=== PATIENT | male | born 1960 | race Caucasian/White ===

== ENCOUNTER 2018-06-17 04:44 | Inpatient (IN) ==
--- NOTE | 2018-05-15 12:45 | Anesthesiology Consultation ---
Date of Service May 15, 2018 Assessment & Plan (1) Encounter for pre-operative examination: Chart Review Chart Review: Acceptable Risk for Surgery and Patient seen in Pre Admission Testing Teaching & Discussion Instructed NPO after midnight before surgery, except medications with 15 cc of water. Medication instructions provided according to the PAT guidelines. History Surgery Operation Date: 06/17/18 07:00 Proposed Procedures p Right Total Knee Arthroplasty - Dorian Edward MD Height/Weight Height: 5 ft 10 in Weight: 120.7 kg Allergies Allergy/AdvReac Type Severity Reaction Status Date / Time ciprofloxacin [From Cipro] Allergy Unknown "BLOWING Verified 05/06/18 09:49 OUT MY VEINS" Medications Home Medications Medication Instructions Recorded Confirmed Last Taken allopurinol 300 mg PO DAILY 05/06/18 05/06/18 Unknown diclofenac sodium 75 mg PO BID 05/06/18 05/06/18 Unknown docusate sodium 100 mg PO BID 05/06/18 05/06/18 Unknown ferrous sulfate 325 mg PO TID 05/06/18 05/06/18 Unknown ibuprofen 600 mg PO UD PRN 05/06/18 05/06/18 Unknown indomethacin 50 mg PO TID PRN 05/06/18 05/06/18 Unknown magnesium oxide 400 mg PO HS 05/06/18 05/06/18 Unknown meclizine 25 mg PO UD PRN 05/06/18 05/06/18 Unknown metformin 500 mg PO QDD 05/06/18 05/06/18 Unknown omeprazole 40 mg PO QAM 05/06/18 05/06/18 Unknown ranitidine HCl 150 mg PO BID 05/06/18 05/06/18 Unknown riboflavin (vitamin B2) 400 mg PO DAILY 05/06/18 05/06/18 Unknown simvastatin 20 mg PO PM 05/06/18 05/06/18 Unknown Past Medical History Medical History Acid reflux Arthritis Headache HEADACHES OVER LAST 2 MON/PCP & NEURO...TESTING ORDERED/NO FINDINGS AT PRESENT- -POSSIBLY LYME DZ, POSSIBLY HYPOGLYCEMIA? History of diverticulitis LAST FLARE UP APPROX 3 YRS AGO History of gout Obesity Pre-diabetes A1C 5.8% on 05/12/18 Past Family History Family History Brother Family history of lymphoma Brother Family history of prostate cancer Grandfather Family history of prostate cancer Mother Family history of breast cancer Past Surgical History Surgical History History of arthroscopy of right shoulder History of colonoscopy History of endoscopy Past Anesthesia History No Hx of Anesthesia Complications and No Family Hx of Anesthesia Complications History of PONV No Motion Sickness Screening History of Motion Sickness: No Social History Smoking Status: Never smoker Do You Dip or Chew Tobacco: No (HX OF - QUIT 12 YRS AGO) Hx Alcohol Use: Yes Alcohol type: beer Alcohol Intake Frequency Comment: "SOCIAL" - NONE LAST 10 WEEKS Hx Substance Use: No substance use type: does not use Exercise / Class Metabolic Activity II 4-5 Yardwork/Stairs/Walk up hill (no CP or SOB with stairs) Review of Systems Pt denies any recent chest pain, shortness of breath, palpitations, cough, fever or URI. Physical Exam Vital Signs BP: 121/81 P: 64bpm SPO2: 93% RA T: 97.6 F R: 12 ENMT Mouth: + small oral opening; no dentures, no dental restorations, no chipped teeth and no loose teeth Thyromental Distance: < 3.5 Finger Breadths (3) Mallampati Class: II Neck + short neck, + thick neck and + facial hair (short mustache); neck extension not limited Respiratory normal respiratory effort Auscultation: lungs clear to auscultation bilaterally Cardiovascular Rate/Rhythm: regular rate and regular rhythm Heart Sounds: no murmur Vessels: no carotid bruit Extremities: no edema Testing Electrocardiogram Date: 02/16/18 Findings: + SB @ (47) Marked sinus bradycardia. High QRS voltage may be noraml varient or due to LVE. Chest X-Ray Date: 02/16/18 Findings: + NAD Laboratory Results 05/15/18 12:18 Blood Type O Negative 05/15/18 12:18 Antibody Screen NEGATIVE 05/15/18 12:18 PT 10.0 Seconds (9.0-12.0) 05/15/18 12:18 INR 1.0 (0.9-1.1) 05/15/18 12:18 APTT 26.5 Seconds (21.0-31.0) 05/15/18 12:18 Urine Color Dark Yellow 05/15/18 12:18 Urine Appearance Clear (Clear) 05/15/18 12:18 Urine pH 5.5 (4.5-7.5) 05/15/18 12:18 Ur Specific [place] 1.023 (1.000-1.030) 05/15/18 12:18 Urine Protein Negative (Negative) 05/15/18 12:18 Urine Glucose (UA) Negative (Negative) 05/15/18 12:18 Urine Ketones Negative (Negative) 05/15/18 12:18 Urine Nitrite Negative (Negative) 05/15/18 12:18 Ur Leukocyte Esterase Negative (Negative) 05/15/18 12:18 05/12/18 SODIUM: 142 POTASSIUM: 4.4 CHLORIDE: 102 CO2: 26 BUN: 32 CREATININE: 1.0 GLUCOSE: 86 A1C: 5.8%
--- NOTE | 2018-05-15 12:53 | PAT Medication Instructions ---
Medication Instructions Date of Service May 15, 2018 Home Medications allopurinol 300 mg PO DAILY diclofenac sodium 75 mg PO BID docusate sodium 100 mg PO BID ferrous sulfate 325 mg PO TID ibuprofen 600 mg PO UD PRN indomethacin 50 mg PO TID PRN magnesium oxide 400 mg PO HS meclizine 25 mg PO UD PRN metformin 500 mg PO QDD omeprazole 40 mg PO QAM ranitidine HCl 150 mg PO BID riboflavin (vitamin B2) 400 mg PO DAILY simvastatin 20 mg PO PM ASK your surgeon for instructions diclofenac sodium 75 mg PO BID ibuprofen 600 mg PO UD PRN DO NOT take the morning of surgery allopurinol 300 mg PO DAILY docusate sodium 100 mg PO BID ferrous sulfate 325 mg PO TID indomethacin 50 mg PO TID PRN riboflavin (vitamin B2) 400 mg PO DAILY Take morning of surgery With a small sip of water, OTHERWISE NOTHING TO EAT OR DRINK AFTER MIDNIGHT: meclizine 25 mg PO UD PRN (if needed) omeprazole 40 mg PO QAM ranitidine HCl 150 mg PO BID Take evening before surgery docusate sodium 100 mg PO BID ferrous sulfate 325 mg PO TID magnesium oxide 400 mg PO HS indomethacin 50 mg PO TID PRN (if needed) meclizine 25 mg PO UD PRN (if needed) metformin 500 mg PO QDD simvastatin 20 mg PO PM Other Notes If you have any questions please call us at [phone] or [phone] or [phone] or [phone]
[2018-05-15 12:58] LABS: Basophils # (auto) 0.09 K/uL (0-0.2); Basophils % (auto) 1.1 %; Eosinophils # (auto) 0.34 K/uL (0-0.5); Hematocrit (blood only) 45.2 % (42-52); Hemoglobin 14.9 g/dL (14.0-18.0); Immature Granulocytes # (auto) 0.02 K/uL (0.00-0.02); Immature Granulocytes % (auto) 0.2 %; Lymphocytes # (auto) 3.01 K/uL (1.2-3.4); Lymphocytes % (auto) 35.8 %; Mean Platelet Volume 9.8 fL (7.4-10.4); Monocytes # (auto) 1.08 K/uL (0.11-0.59); Monocytes % (auto) 12.9 %; Neutrophils # (auto) 3.86 K/uL (1.4-6.5); Platelet Count 218 K/uL (130-400); RDW Coefficient of Variation 18.4 % (11.5-14.5); RDW Standard Deviation 57.7 fL (36.4-46.3); Red Blood Count 5.32 M/uL (4.7-6.1)
[2018-05-15 13:00] LABS: Appearance Urine Clear (Clear); Bilirubin Urine Negative (Negative); Color Urine Dark Yellow; Glucose Urine UA Negative (Negative); Ketones Urine Negative (Negative); Leukocyte Esterase Urine Negative (Negative); Nitrite Urine Negative (Negative); Protein Urine Negative (Negative); Specific Gravity Urine 1.023 (1.000-1.030); Urobilinogen Urine Negative (Negative); pH Urine 5.5 (4.5-7.5)
[2018-05-15 13:10] LABS: Partial Thromboplastin Time 26.5 Seconds (21.0-31.0)
--- NOTE | 2018-06-16 13:40 | History and Physical Report ---
DATE OF ADMISSION: 06/17/2018 CHIEF COMPLAINT: Chronic right knee pain. HISTORY OF PRESENT ILLNESS: This is a 58-year-old male patient of Dr. Edward'annetta complaining of chronic right knee pain, longstanding, now progressively getting worse. The patient has failed conservative treatment including anti-inflammatories, intraarticular injections and the use of a brace. The patient has been diagnosed with end-stage osteoarthritis per clinical and radiographic exams. The patient wished to proceed with a right total knee arthroplasty. PAST MEDICAL HISTORY: Hypercholesterolemia, history of chronic headaches, diabetes mellitus, acid reflux. SOCIAL HISTORY: Nonsmoker, nondrinker. PAST SURGICAL HISTORY: Negative. FAMILY HISTORY: Noncontributory. REVIEW OF SYSTEMS: Chronic right knee pain, otherwise denies any shortness of breath, chest pain, nausea, vomiting or any other joint complaints. MEDICATIONS: 1. Allopurinol 300 mg daily. 2. Clindamycin phosphate 1% lotion apply to arms and neck twice daily as needed. 3. Diclofenac sodium 75 mg twice daily. 4. Docusate sodium 100 mg capsules twice daily for constipation. 5. Ferrous sulfate 325 mg 3 times a day, Friday, Friday and Friday. 6. Gabapentin 100 mg 3 tablets 3 times daily. 7. Ibuprofen as needed. 8. Indomethacin 50 mg 3 times daily p.r.n. 9. Magnesium oxide 400 mg at bedtime. 10. Meclizine 25 mg 3 times daily as needed for dizziness. 11. Metformin 500 mg daily. 12. Omeprazole 40 mg daily. 13. Ranitidine 150 mg twice daily. 14. Riboflavin 400 mg daily. 15. Simvastatin 20 mg every other evening. 16. Triamcinolone acetonide 0.025% cream to affected area twice daily. ALLERGIES: CIPRO. PHYSICAL EXAMINATION: GENERAL: Well-developed, well-nourished 58-year-old male in no acute distress. He is alert and oriented x3 and pleasant. HEENT: Normocephalic, atraumatic. Extraocular motions are intact. Pupils are equal, reactive to light. HEART: Regular rate and rhythm, no murmurs are appreciated. LUNGS: Clear. ABDOMEN: Soft, nontender, bowel sounds present. EXTREMITIES: Right knee medial joint line tenderness with a varus deformity. He has a range of motion of 0-130. Has 5/5 strength. Neurologically and neurovascularly, he is intact in his right lower extremity. DIAGNOSES: Right knee end-stage osteoarthritis, hypercholesterolemia, history of headaches, diabetes mellitus, acid reflux. PLAN: The patient was advised of his diagnosis. Indications, risks, benefits, postop course have all been reviewed. The patient wished to proceed with a right total knee arthroplasty. Necessary consent forms, preoperative testing and clearances will be obtained.
[2018-06-17] MEDS: LR 500ML BOLUS, THEN 15ML/HR IV SCH ×2 (05:30→10:46)
[2018-06-17] MEDS ORDERED: FAMOTIDINE 20 MG TAB PO SCH (06:00)
[2018-06-17] MEDS ORDERED: METOCLOPRAMIDE HCL 10 MG TABLET PO SCH (06:00)
[2018-06-17] MEDS ORDERED: CeleBREX 200 MG CAP PO SCH (06:00)
[2018-06-17] MEDS ORDERED: TRANEXAMIC ACID 1,000 MG **IV Pre-op IV SCH (06:00)
[2018-06-17] MEDS ORDERED: CEFAZOLIN 2000MG 2,000 MG/15 ML SYR IV SCH (06:00)
[2018-06-17] MEDS ORDERED: ROPIVACAINE 0.5% HCL/PF 150 MG, BUPIVACAINE 0.5% MPF 30 ML, EPINEPHrine 30MG/30ML (OR U... INFIL SCH (06:00)
[2018-06-17] MEDS ORDERED: ACETAMINOPHEN 500 MG TAB PO SCH (06:00)
[2018-06-17] MEDS ORDERED: GABAPENTIN 300 MG x 2 PO SCH (06:00)
[2018-06-17] MEDS ORDERED: CEFAZOLIN 3000MG 65 ML IV SCH (06:00)
[2018-06-17] MEDS ORDERED: ROPIVACAINE 0.5% 5 MG/ML 30 ML VIAL ONE (06:16)
[2018-06-17] MEDS ORDERED: BUPIVACAINE 0.5 % 5 MG/1 ML PF 10ML VIAL ONE (06:16)
[2018-06-17] MEDS ORDERED: fentaNYL citrate 100 MCG/2 ML VIAL ONE (06:26)
[2018-06-17] MEDS ORDERED: PROPOFOL IV EMULSION 10 MG/ML 20 ML VIAL IV ONE ×2 (06:26→06:30)
[2018-06-17] MEDS ORDERED: MIDAZOLAM HCL 1 MG/ML 2ML VIAL ONE (06:27)
[2018-06-17] MEDS ORDERED: TRANEXAMIC ACID 1,000 MG **IV Intra-op IV SCH (06:30)
[2018-06-17] MEDS ORDERED: ORTHO JOINT ANESTHETIC ONE (06:45)
[2018-06-17] MEDS ORDERED: BACITRACIN INJ 50,000 UNIT VIAL ONE (06:45)
[2018-06-17] MEDS ORDERED: POVIDONE-IODINE OP SOLN 30 ML BTL ONE (06:45)
[2018-06-17] MEDS ORDERED: ONDANSETRON INJ 2 MG/ML 2 ML VIAL IV PRN ×2 (06:50→09:40)
[2018-06-17] MEDS ORDERED: fentaNYL citrate 100 MCG/2 ML VIAL IV PRN (06:50)
[2018-06-17] MEDS ORDERED: HYDROmorphone INJ 1 MG/ML SYRINGE IV PRN (06:50)
[2018-06-17] MEDS ORDERED: PHENYLEPHRINE 100MCG/ML 5ML SYR IV PRN (06:50)
[2018-06-17] MEDS ORDERED: PROMETHAZINE HCL 12.5 MG in SODIUM CHLORIDE 0.9% 50 ML IV PRN (06:50)
[2018-06-17] MEDS ORDERED: ePHEDrine sulfate 50 MG/ML AMP IV PRN (06:50)
[2018-06-17] MEDS ORDERED: ATROPINE SULFATE 0.1 MG/ML 10ML SYR IV PRN (06:50)
--- NOTE | 2018-06-17 07:13 | History & Physical Bridge Note ---
Date of Service June 17, 2018 History & Physical Bridge Note I have examined the patient, reviewed the History & Physical and in the interval since the performance of the History & Physical I have noted the following changes of clinical significance: no changes noted
[2018-06-17] MEDS ORDERED: PHENYLEPHRINE HCL 10 MG/ML VIAL ONE (07:47)
[2018-06-17] MEDS ORDERED: ePHEDrine sulfate 50 MG/ML AMP ONE (07:47)
--- NOTE | 2018-06-17 09:02 | Post Operative Brief Note ---
Immediate Post Op Note v1 Date of Surgery June 17, 2018 Pre & Post Diagnosis Operation Date: 06/17/18 07:00 Pre-Op Diagnosis: RIGHT KNEE DEGENERATIVE JOINT DISEASE Post-Op Diagnosis: RIGHT KNEE DEGENERATIVE JOINT DISEASE Procedure Operation Date: 06/17/18 07:00 Actual Procedures p Right Total Knee Arthroplasty(Right) - Dorian Edward MD Surgeon Dorian Edward MD Geospatial Image Analyst Shane MCDERMOTT Estimated Blood Loss 5 Findings Consistent with Post-Op Diagnosis Specimens bone cuts Drains Hemovac Drain Anesthesia Type Spinal MAC Complications none Disposition Accompanied Patient To Recovery: No Disposition: Recovery Room Overlapping Procedure I was present for: the critical portions of procedure.
[2018-06-17] MEDS ORDERED: MoRPHine SULFATE 4 MG/ML 1 ML CARP\\VIAL IV PRN (09:39)
[2018-06-17] MEDS ORDERED: MAGNESIUM HYDROXIDE SUSP 30 ML UDC PO PRN (09:40)
[2018-06-17] MEDS ORDERED: INDOMETHACIN 25 MG CAP PO PRN (09:40)
[2018-06-17] MEDS ORDERED: NALOXONE HCL 0.4 MG/1 ML VIAL/CARP IV PRN (09:40)
[2018-06-17] MEDS ORDERED: METOCLOPRAMIDE HCL INJ 5 MG/ML 2 ML VIAL IV PRN (09:40)
[2018-06-17] MEDS ORDERED: BISACODYL 10 MG SUPP PR PRN (09:40)
[2018-06-17] MEDS ORDERED: MECLIZINE HCL 25 MG TAB PO PRN (09:40)
--- NOTE | 2018-06-17 09:54 | XRay Report ---
XR knee RT 2V routine CLINICAL HISTORY: Surgical Post Op COMPARISON: None. DISCUSSION: There are postsurgical changes of a total right knee arthroplasty and patellar resurfacin g. Overlying skin karen and surgical drains are evident. The femoral and tibial components appear w ell seated. Gas in the soft tissues is felt to be postsurgical. IMPRESSION: Postsurgical changes of a total right knee arthroplasty. Electronically signed by: Henrique Lassiter M.D. 06/17/2018 9:52 AM
--- NOTE | 2018-06-17 09:59 | Anesthesiology Progress Note ---
Date of Service June 17, 2018 Anesthesia Post Procedure Vital Signs Vital Signs: Temp Pulse Pulse Resp BP Pulse Ox 06/17/18 09:50 36.3 C L 56 L 17 101/58 L 98 06/17/18 09:40 59 L 17 102/61 99 06/17/18 09:33 36.7 C 61 12 92/63 L 99 06/17/18 05:44 36.5 C 57 L 20 134/86 94 Notes Mental Status: alert / awake / arousable Patient Amnestic to Procedure: Yes Nausea / Vomiting: adequately controlled Pain: adequately controlled Airway Patency, RR, SpO2: stable & adequate BP & HR: stable & adequate Neuraxial Anesthesia: was administered and sensory block is resolving Anesthetic Complications: no major complications apparent
[2018-06-17] MEDS ORDERED: GLUCAGON FOR INJ 1 MG VIAL SQ PRN (10:27)
[2018-06-17] MEDS ORDERED: DEXTROSE 50% 50 ML SYRINGE IV PRN (10:27)
[2018-06-17] MEDS ORDERED: GLUCOSE 40% GEL 15 GM TUBE PO PRN (10:27)
[2018-06-17] MEDS ORDERED: CARBOHYDRATES FOR HYPOGLYCEMIA PO PRN (10:27)
[2018-06-17] MEDS ORDERED: GLUCOSE 10 TABS/TUBE PO PRN (10:27)
[2018-06-17] MEDS ORDERED: PHARMACY GLYCEMIC MGMT CONSULT PRN (10:34)
--- NOTE | 2018-06-17 10:50 | Consultation ---
Date of Consultation June 17, 2018 Assessment & Plan (1) Osteoarthritis of right knee: (2) Status post total knee replacement, right: This is a 58 year old M with significant PMH of Pre-DM, HLD, Gout, Gerd, Iron def anemia and cluster headaches who presents to [facility] for elective R TKA. POD #0 R Total Knee Arthroplasty by Dr Edward EBL 5 ml Patient tolerated procedure well -pain/wound management per ortho -PT/OT as directed -incentive spirometry -monitor H/H for abl anemia (3) Pre-diabetes: -A1C 5.8 on 05/12/18 -ACHS accuchecks -will add Novolog sliding scale per protocol -hold metformin (4) Sinus bradycardia by electrocardiogram: -patient pre op ecg revealed sinus bradycardia 47 bpm -post operatively HR low 50s -monitor (5) HLD (hyperlipidemia): -continue statin (6) Cluster headache syndrome: -continue gabapentin 300mg tid (7) Acid reflux: -continue Pantoprazole and ranitidine (8) History of gout: -continue allopurinol (9) Class 2 obesity without serious comorbidity with body mass index (BMI) of 35.0 to 35.9 in adult: -encourage lifestyle modifications (10) DVT prophylaxis: -ASA BID per ortho Disposition: Per Primary Team Follow up: PCP Dr. Solares upon discharge Patient was seen in collaboration with Dr. Henning, please see addendum Starting 06/17/18 patient will be followed by Dr. Smith Supervising Physician Co-Signing Physician Notes Pt was seen and examined. Agreed with An exam, assessment and plan. S/P day #0 R Total Knee Arthroplasty performed by Dr Edward. Continue pain control. Incentive spirometry. Fall precaution. Monitor H/H. PT/OT eval. History of Present Illness Reason for Consultation: Post operative medical management Requesting Physician: Dr. Edward Attending Physician: Dorian Edward MD History of Present Illness This is a 58 year old M with significant PMH of Pre-DM, HLD, Gout, Gerd, Iron def anemia and cluster headaches who presents to [facility] for elective R TKA. Patient with end stage OADJD failed outpatient conservative measures. Tolerated procedure well. No post operative complaints. "Still can't feel my whole leg." Denies dizziness, lightheaded, f/c/s, chest pain, sob, n/v/ abdominal pain. Family is at bedside. He does note he takes gabapentin 300mg tid for cluster headaches. Allergies Allergy/AdvReac Type Severity Reaction Status Date / Time ciprofloxacin [From Cipro] AdvReac Unknown "BLOWING Verified 06/17/18 05:36 OUT MY VEINS" Home Medications Home Medications Medication Instructions Recorded Confirmed Type allopurinol 300 mg PO DAILY 05/06/18 06/17/18 History diclofenac sodium 75 mg PO BID 05/06/18 06/17/18 History docusate sodium 100 mg PO BID 05/06/18 06/17/18 History ferrous sulfate 325 mg PO TID 05/06/18 06/17/18 History ibuprofen 600 mg PO UD PRN 05/06/18 06/17/18 History indomethacin 50 mg PO TID PRN 05/06/18 06/17/18 History magnesium oxide 400 mg PO HS 05/06/18 06/17/18 History meclizine 25 mg PO UD PRN 05/06/18 06/17/18 History metformin 500 mg PO QDD 05/06/18 06/17/18 History omeprazole 40 mg PO QAM 05/06/18 06/17/18 History ranitidine HCl 150 mg PO BID 05/06/18 06/17/18 History riboflavin (vitamin B2) 400 mg PO DAILY 05/06/18 06/17/18 History simvastatin 20 mg PO PM 05/06/18 06/17/18 History gabapentin 300 mg PO TID 06/17/18 06/17/18 History Patient History Medical History Cluster headache syndrome History of gout Arthritis Acid reflux History of diverticulitis LAST FLARE UP APPROX 3 YRS AGO Headache HEADACHES OVER LAST 2 MON/PCP & NEURO...TESTING ORDERED/NO FINDINGS AT PRESENT- -POSSIBLY LYME DZ, POSSIBLY HYPOGLYCEMIA? Pre-diabetes A1C 5.8% on 05/12/18 Obesity Surgical History History of colonoscopy History of endoscopy History of arthroscopy of right shoulder Family History Brother Family history of lymphoma Brother Family history of prostate cancer Grandfather Family history of prostate cancer Mother Family history of breast cancer Social History Current Living Situation: Spouse Other Information That Helps Us Care for You: No Feels Safe at Home: Yes Smoking Status: Never smoker Do You Dip or Chew Tobacco: No (HX OF - QUIT 12 YRS AGO) Hx Alcohol Use: Yes Alcohol type: beer Hx Substance Use: No Beliefs That Will Affect Care: None Preferred Language: Frisian Communication Ability: Effective Passenger Service Manager Required: No Review of Systems 14 pt ROS was reviewed and negative unless noted above Physical Exam 2 Vital Signs (Past 24 Hours): Last Vital Signs Temp 36.4 C L 06/17/18 10:10 Pulse 50 L 06/17/18 10:43 Resp 18 06/17/18 10:43 BP 110/70 06/17/18 10:43 Pulse Ox 98 06/17/18 10:43 Constitutional: WD/WN, vitals as above + obese Eyes: PERRL, conjunctivae normal, anicteric sclerae ENMT: external ear and nose normal, oropharynx normal Neck: trachea midline, no thyromegaly Respiratory: normal respiratory effort, lungs clear to auscultation Cardiovascular: Rate/Rhythm: regular rhythm and + bradycardic Heart Sounds : + murmur (NO) Palpation: normal PMI Vessels: dorsalis pedis pulses present Gastrointestinal (Abdomen): normal bowel sounds, soft, nontender, no hepatosplenomegaly Musculoskeletal: no cyanosis or clubbing, extremities motor strength 5/5 Skin: no rashes, warm and dry RTKA incision dressing CDI, [place] drain with serosanginous drainage Psychiatric: A+Ox3, euthymic affect Results & Data Laboratory Results Pre Operative lab work A1C 5.8 Hgb 14.9 Bun/Cr 32 and 1.0 Diagnostic Findings Knee Xray: IMPRESSION: Postsurgical changes of a total right knee arthroplasty. ECG Rate (beats per minute): 47 Rhythm: sinus bradycardia _ (1) Cluster headache syndrome Headache chronicity pattern: unspecified pattern Intractability: not intractable Qualified Code(s): G44.009 - Cluster headache syndrome, unspecified , not intractable (2) HLD (hyperlipidemia) Hyperlipidemia type: unspecified Qualified Code(s): E78.5 - Hyperlipidemia, unspecified (3) Osteoarthritis of right knee Osteoarthritis type: primary Qualified Code(s): M17.11 - Unilateral primary osteoarthritis, right knee (4) Acid reflux Esophagitis presence: esophagitis presence not specified Qualified Code(s): K21.9 - Gastro-esophageal reflux disease without esophagitis (5) Class 2 obesity without serious comorbidity with body mass index (BMI) of 35.0 to 35.9 in adult Obesity type: due to excess calories Qualified Code(s): E66.09 - Other obesity due to excess calories; Z68.35 - Body mass index (BMI) 35.0-35.9, adult
[2018-06-17] MEDS: SODIUM CHLORIDE 0.9% 1000ML 1,000 ML IV SCH ×2 (11:05→21:14)
--- NOTE | 2018-06-17 12:01 | Pharmacy Report ---
Glycemic Control Consultation - Date of Service June 17, 2018 - Scope Scope: Glycemic Pharmacist consulted by Roberto Levy on 06/17/18 for glycemic control and to write orders per [facility] inpatient glycemic control protocol - Objective Weight: 120.372 kg Accuchecks BSG (last 24hrs): 06/17/18 06/17/18 05:11 09:37 POC Glucose 105 H 92 HbA1c: 5.8% on 05/12/18 per outpatient records - Recent Pertinent Medications Outpatient Anti-diabetic Regimen: * metformin 500mg PO QDD Risk Factors for Insulin Resistance: * Recent Surgery * Diet - Assessment & Plan Assessment & Plan: ASSESSMENT: * 58yo pre-diabetic with adequate control per A1c. * Pt is maintained on oral antidiabetic agents as an outpatient * Oral agents are not recommended for inpatient use d/t drug interactions, changing PO intake, and difficulty titrating for acute hyper/hypoglycemia. ADA recommends re-initiating outpatient oral agents 1-2 days prior to discharge if/ when appropriate if they were held on admission. * Will hold oral agents for admission and utilize SQ basal bolus insulin regimen which is the recommended regimen for inpatient glycemic control. * Will initiate weight based insulin dosing for insulin na�ve patient and titrate based on BSG trends. * Basal insulin likely not needed since patient did not receive steroids and A1c is so close to normal PLAN FOR INPATIENT GLYCEMIC CONTROL: * Holding outpatient oral diabetes medications * Basal insulin * Will only initiate for persistent hyperglycemia (BSG >180 mg/dl) * Bolus insulin: weight/low stress dosing * NovoLog per scale ACHS or Q6hrs while NPO * Goal Range: Low 110 mg/dL - High 140 mg/dL * Correction Factor: 35 mg/dL/unit * Nutritional / Prandial insulin per carb ratio of 1 unit per 15 grams CHO consumed * Please note that the plan above was derived based on current level of insulin resistance and hospital stress. These recommendations are appropriate for inpatient admission only. Plan of care upon discharge will need to be reassessed to avoid potential outpatient hypo/hyperglycemia. Thank you.
[2018-06-17] MEDS: FERROUS SULFATE 325 MG TAB PO SCH ×2 (12:33→17:31)
[2018-06-17] MEDS: INSULIN ASPART 100 UNITS/ML 3 ML PEN SC SCH ×3 (12:33→20:57)
[2018-06-17] MEDS: ACETAMINOPHEN 500 MG TAB PO SCH ×2 (13:22→21:50)
[2018-06-17] MEDS: GABAPENTIN 300 MG CAP PO SCH ×2 (13:33→20:58)
[2018-06-17] MEDS ORDERED: GABAPENTIN 100 MG CAP PO SCH (14:00)
[2018-06-17] MEDS: CEFAZOLIN 2000MG 2,000 MG/15 ML SYR IV SCH ×2 (15:23→23:13)
--- NOTE | 2018-06-17 16:43 | Operative Report ---
Post Operative Report Pre & Post Diagnosis Operation Date: 06/17/18 07:00 Pre-Op Diagnosis: RIGHT KNEE DEGENERATIVE JOINT DISEASE Post-Op Diagnosis: RIGHT KNEE DEGENERATIVE JOINT DISEASE Procedure Operation Date: 06/17/18 07:00 Actual Procedures p Right Total Knee Arthroplasty(Right) - Dorian Edward MD Surgeon Dorian Edward MD Field Service Rep Shane MCDERMOTT Estimated Blood Loss 5 Findings Consistent with Post-Op Diagnosis Specimens Bone cuts Drains 2 Hemovac Anesthesia Type Spinal MAC Complications none Disposition Accompanied Patient To Recovery: No Disposition: Recovery Room Indications 58-year-old male with chronic aggressive osteoarthritis in his right knee failed conservative management. Radiographs demonstrate [id number] medial compartment with varus knee and some mild to moderate patellofemoral osteoarthritis Description of Procedure The patient was taken to the operating room and anesthetized under spinal MAC regional block. Patient was placed supine on the the operating table. A pneumatic tourniquet was placed about the right upper thigh. The knee exam demonstrated good range of motion positive Bubba exam negative pivot shift no effusion varus knee. The involved leg was elevated exsanguinated with Esmarch bandage and the pneumatic tourniquet was raised to 325 millimeters mercury. A longitudinal incision was made across the anterior knee. Skin flaps were elevated. An incision was made into the medial retinaculum and extended up into the mid third of the quadriceps tendon and extended down to the tibial tubercle. Intra-articular findings demonstrated [id number] medial compartment grade 4 trochlear lesion degeneration ACL. The knee was exposed by excising cruciate ligaments and menisci. The infrapatellar fat pad was resected. The fat pad over the anterior femur at the upper aspect of the articular surface was resected for placement of the component in that area. A subperiosteal peel lateral release was performed around the patella. To balance the knee we had to do medial and posterior medial releases. The [employer]ep[employer]hew journey 2.0 total knee arthroplasty system was utilized for the procedure. The custom femoral cutting guide was pinned in position. The distal femoral cut was made. The size 6, 5 in 1 cutting block was placed. The anterior posterior and chamfer cuts were made. The knee was extended and a free hand cut technique was performed to the patella. The patella with was measured and the width was reproduced using a 35 symmetrical patella component. 3 drill holes are made for the patella component pegs. The tibia was then subluxed. The custom tibial cutting block was pinned in position and the proximal tibial cut was made with the oscillating saw. The size 5 tibial trial was externally rotated in line with the tibial tubercle and pinned in position. The punch for the stem was used. The femoral trial was inserted and centered the notch cutting devices were used and the collet was placed. Tibial trials were used for the insert. The size 10 trial gave balanced ligaments through full range of motion. Patella tracking was assessed with range of motion. The patella tracked centrally. The trials were removed. The Orthomix anesthetic cocktail was injected per protocol. The cut bone surfaces and soft tissue were copiously irrigated with antibiotic solution with bacitracin. The final components were cemented with Simplex cement. The final components were Zepeda [employer]hew journey 2.0 posterior stabilized right size 6 femoral component with 5 tibial baseplate and 10 mm posterior stabilized high flex polyethylene and a 35 mm symmetrical patella. While the cement cured the Betadine soak was used per protocol. When the cement cured the knee was copiously irrigated with pulsatile lavage antibiotic solution with bacitracin. 2 drains were brought out laterally connected to Hemovac. The quadriceps tendon and medial retinaculum were closed with interrupted [id number] #1 Vicryl sutures. The knee was taken through full range of motion and repair was secure. The subcutaneous tissues were closed with 2-0 Vicryl sutures. The skin was closed with karen. A sterile Silverlon dressing was applied. The tourniquet was let down and the patient had good capillary refill to the extremity. The patient tolerated the procedure well. My physician bakery assistant Shane MCDERMOTT assisted in the procedure including prepping draping leg positioning soft tissue retraction instrument management and assisted in the closure ,dressings application and will participate in postoperative care the patient. I attest to the content of the Intraoperative Record and any orders documented therein. Any exceptions are noted below.
[2018-06-17] MEDS: TRAMADOL HCL 50 MG TABLET PO PRN ×2 (19:31→23:16)
[2018-06-17] MEDS: MAGNESIUM OXIDE 400 MG TAB PO SCH (20:57)
[2018-06-17] MEDS: CeleBREX 200 MG CAP PO SCH (20:57)
[2018-06-17] MEDS: SENNA 8.6 MG TAB PO SCH (20:57)
[2018-06-17] MEDS: DOCUSATE SODIUM 100 MG CAP PO SCH (20:57)
[2018-06-17] MEDS: ASPIRIN 81 MG ECTAB PO SCH (20:57)
[2018-06-17] MEDS: SIMVASTATIN 20 MG TAB PO SCH (20:58)
[2018-06-18] MEDS: TRAMADOL HCL 50 MG TABLET PO PRN ×5 (04:40→23:48)
[2018-06-18] MEDS: ACETAMINOPHEN 500 MG TAB PO SCH ×3 (05:11→21:10)
[2018-06-18 05:47] LABS: Hematocrit (blood only) 40.1 % (42-52); Hemoglobin 13.2 g/dL (14.0-18.0); Mean Corpuscular Hgb Conc 32.9 g/dL (32-36); Mean Corpuscular Volume 88.3 fL (80-100); Mean Platelet Volume 9.4 fL (7.4-10.4); Platelet Count 180 K/uL (130-400); RDW Coefficient of Variation 17.1 % (11.5-14.5); RDW Standard Deviation 55.7 fL (36.4-46.3); Red Blood Count 4.54 M/uL (4.7-6.1); White Blood Count 10.04 K/uL (4.8-10.8)
[2018-06-18 06:18] LABS: BUN Creatinine Ratio 15.2 (10-20); Calcium 7.6 mg/dl (8.5-10.1); Creatinine Clr Calc Pharmacy 103.2 ml/min; Est GFR (African American) 95.5; Est GFR (Non-African American) 82.4; Potassium 4.3 mmol/L (3.5-5.1)
--- NOTE | 2018-06-18 07:14 | Orthopedic Progress Note ---
Date of Service June 18, 2018 Assessment & Plan (1) Status post total knee replacement, right: POD #1, Right TKA. DVT proph- ASA. D/C planning- Home w HH. PT/ OT. As per medicine. Subjective POD #1, Doing well, denies SOB, CP, N/V, states pain controlled well. Questioned whether he could go home today. Physical Exam 2 Vital Signs (Past 24 Hours): Last Vital Signs Temp 36.8 C 06/18/18 06:42 Pulse 79 06/18/18 06:42 Resp 18 06/18/18 06:42 BP 128/79 06/18/18 06:42 Pulse Ox 93 06/18/18 06:42 Physical Exam: Right knee dressing c/d/i, no drainage, toes/ ankle mobile, no calf tenderness, A&Ox3.
[2018-06-18] MEDS: OXYCODONE HCL IR 5 MG TAB (IMMEDIATE RELEASE) PO PRN (07:15)
[2018-06-18] MEDS ORDERED: RIBOFLAVIN 400 MG PO SCH (09:00)
[2018-06-18] MEDS: INSULIN ASPART 100 UNITS/ML 3 ML PEN SC SCH ×4 (09:00→21:09)
[2018-06-18] MEDS: FERROUS SULFATE 325 MG TAB PO SCH ×3 (09:02→17:50)
[2018-06-18] MEDS: CeleBREX 200 MG CAP PO SCH ×2 (09:03→21:10)
[2018-06-18] MEDS: GABAPENTIN 300 MG CAP PO SCH ×3 (09:03→21:08)
[2018-06-18] MEDS: DOCUSATE SODIUM 100 MG CAP PO SCH ×2 (09:04→21:08)
[2018-06-18] MEDS: ALLOPURINOL 300 MG TAB PO SCH (09:04)
[2018-06-18] MEDS: PANTOprazole 40 MG TAB PO SCH (09:04)
[2018-06-18] MEDS: ASPIRIN 81 MG ECTAB PO SCH ×2 (09:05→21:09)
[2018-06-18] MEDS: MULTIVITAMIN TAB PO SCH (09:05)
--- NOTE | 2018-06-18 09:26 | Anesthesiology Progress Note ---
Date of Service June 18, 2018 Anesthesia Post Procedure Vital Signs Vital Signs: Temp Pulse Pulse Resp BP Pulse Ox 06/18/18 06:42 36.8 C 79 18 128/79 93 06/18/18 03:23 36.7 C 74 16 122/78 94 06/17/18 23:32 36.7 C 65 16 118/74 95 06/17/18 19:07 36.8 C 72 20 119/72 96 06/17/18 15:40 36.6 C 57 L 18 119/72 96 06/17/18 13:06 58 L 18 121/79 97 06/17/18 12:10 36.5 C 58 L 18 122/80 97 06/17/18 11:09 36.5 C 51 L 16 116/80 98 06/17/18 10:43 50 L 18 110/70 98 06/17/18 10:10 36.4 C L 58 L 16 113/66 98 06/17/18 09:50 36.3 C L 56 L 17 101/58 L 98 06/17/18 09:40 59 L 17 102/61 99 06/17/18 09:33 36.7 C 61 12 92/63 L 99 Pain Intensity Right Knee: Pain Intensity: 6 Notes Mental Status: alert / awake / arousable Nausea / Vomiting: adequately controlled Pain: adequately controlled Airway Patency, RR, SpO2: stable & adequate BP & HR: stable & adequate Hydration State: stable & adequate Neuraxial Anesthesia: was administered and sensory block resolved Anesthetic Complications: no major complications apparent and Pt Satisfied with anesthetic care
[2018-06-18] MEDS ORDERED: SODIUM CHLORIDE 0.9% 1000ML 1,000 ML IV SCH (10:00)
--- NOTE | 2018-06-18 10:00 | Hospitalist Progress Note ---
Date of Service June 18, 2018 Assessment & Plan (1) Osteoarthritis of right knee: (2) Status post total knee replacement, right: POD #1 S/P R Total Knee Arthroplasty by Dr Wagner ARMSTRONG 5 ml during surgery Hemovac with total 810ml output since surgery yesterday. -pain management per ortho -wound management per ortho -PT/OT as appropriate -DVT prophylaxis per ortho - Aspirin -incentive spirometry -Hgb: 13.2 from 14.9 (3) Syncope: This morning had syncopal episode while sitting in chair after walking from bathroom which was proceeded by diaphoresis, nausea and dry heaves. BSG checked after and was 115 and was 98 at 0500 today. Vitals taken after pt back in bed were P: 66, BP: 121/77. Yesterday post op was noted to have bradycardia in 50's and throughout rest of day and overnight P: 60-70's. SBPs: 116-128. BSGs : low of 75 yesterday afternoon with High of 120 last night. -Reported hx syncope during vertigo testing when warm water placed into L ear in fall of 2017. DDX: orthostatic hypotension, vasovagal syncope -Currently pt asymptomatic. Denies CP, SOB, palpitations -EKG: sinus bradycardia, rate 58 -orthostatic vital signs pending -IVF -monitor -fall precautions (4) Pre-diabetes: A1C 5.8 on 05/12/18 BSG low of 75, high of 120 -ACHS accuchecks -Novolog sliding scale per glycemic pharmacy -hold metformin (5) Sinus bradycardia by electrocardiogram: Pre-op EKG sinus bradycardia 47 bpm Initially post operatively HR low 50s, then in 60-70's Today EKG: sinus bradycardia, rate 58 -monitor (6) HLD (hyperlipidemia): -continue statin (7) Cluster headache syndrome: -continue gabapentin 300mg tid (8) Acid reflux: -continue Pantoprazole and ranitidine (9) History of gout: -continue allopurinol (10) Class 2 obesity without serious comorbidity with body mass index (BMI) of 35.0 to 35.9 in adult: -encourage lifestyle modifications (11) DVT prophylaxis: -ASA BID per ortho Disposition: Per Primary Team Follow up: PCP Dr. Solares upon discharge Patient was seen in collaboration with Dr. Smith, please see addendum Supervising Physician Co-Signing Physician Notes Attending Addendum: care coordinated with BALDEMAR Maher please refer to her notes for full details, I agree with her notes patient seen and examined, records reviewed by myself as well on exam, patient seen resting in bed had a syncopal episode this morning no prodrome denies dizziness, chest pain, dyspnea patient reports syncopal episode last February while being evaluated in [facility] no other symptoms VS noted and reviewed oriented x 3 , not in distress, speaks in sentences with no effort nor accessory muscle use normal rate, regular rhythm, no murmurs clear breath sounds bilaterally non distended, soft, nontender right knee: dressing in place no bipedal edema, erythema, warmth no neuro deficits WBC 10.4 Hg 13 ASSESSMENT AND PLAN SYNCOPAL EPISODE POSSIBLE VASOVAGAL, ORTHOSTATIC EPISODE R/O ARRHYTHMIA - transfer to teleemetry for cardiac monitoring IV fluids ordered monitor Orthostatic VS avoid Narcotics other diagnoses and plan of care as per BALDEMAR Maher notes Kojo Smith MD Subjective Pt seen and examined. Sitting up in bed. Pt reports syncope this morning. States was in bathroom, tried to have BM however just passed gas. Then tried to get himself cleaned up and walked to chair. Once to chair he started to feel diaphoretic, nausea and had dry heaves. He thought initially he may be hypoglycemic as he hadn't eaten breakfast yet. Nurse reported went to get glucometer and when returned pt had passed out and touched pt and he quickly aroused. BSG was 115. Pt wanted to sit in chair and was awake and alert and no further symptoms reported. Vitals were taken a bit later when pt got into bed, and P: 66, BP: 121/77. Pt had oxycodone approx 45 minutes prior to episode which was his first dose, otherwise he had been taking tramadol. Denies CP, SOB, palpitations, paresthesias, vision changes. Chronic daily RYAN's, denies any increased RYAN. Urinating without difficulty. No BM yet since surgery. Reports feels good now and back to baseline and feels knee pain controlled. Denies fever/chills, neck pain, cough, sore throat, choking, abdominal pain, rashes, urinary symptoms. Yesterday post op was noted to have sinus bradycardia in 50's and throughout rest of day and overnight P: 60-70's. SBPs: 116-128. BSGs: 75 yesterday afternoon, 98 today at 0500. High of 120. Pt reports hx syncope during vertigo testing when warm water put into L ear in fall of 2017. Hemovac with 225ml output since last night and total 810ml output since surgery yesterday. Physical Exam 2 Vital Signs (Past 24 Hours): Last Vital Signs Temp 36.8 C 06/18/18 06:42 Pulse 79 06/18/18 06:42 Resp 18 06/18/18 06:42 BP 128/79 06/18/18 06:42 Pulse Ox 93 06/18/18 06:42 Physical Exam: General: no acute distress, obese Head: normocephalic, atraumatic Eyes: PERRL, EOM's intact, conjunctiva non-injected, anicteric ENT: normal inspection external ears, nose, mucous membranes moist Neck: supple, trachea midline Lungs: clear, no respiratory distress, no wheezing/rhonchi/rales CV: RRR, rate 62, no murmur Abd: normal BS, soft, non-tender Ext: no cyanosis, no calf tenderness; RLE: ginger wrap in place with hemovac in place with serosanguineous drainage Neuro: A&O x 3, no focal deficits noted, normal affect Skin: warm, dry Results & Data Laboratory Results Short CBC 06/18/18 Range/Units 05:19 WBC 10.04 (4.8-10.8) K/uL Hgb 13.2 L (14.0-18.0) g/dL Hct 40.1 L (42-52) % Plt Count 180 (130-400) K/uL BMP 06/18/18 05:19 Sodium 136 Potassium 4.3 Chloride 107 Carbon Dioxide 27 BUN 15 Creatinine 0.99 Glucose 98 Calcium 7.6 L _ (1) Cluster headache syndrome Headache chronicity pattern: unspecified pattern Intractability: not intractable Qualified Code(s): G44.009 - Cluster headache syndrome, unspecified , not intractable (2) HLD (hyperlipidemia) Hyperlipidemia type: unspecified Qualified Code(s): E78.5 - Hyperlipidemia, unspecified (3) Osteoarthritis of right knee Osteoarthritis type: primary Qualified Code(s): M17.11 - Unilateral primary osteoarthritis, right knee (4) Acid reflux Esophagitis presence: esophagitis presence not specified Qualified Code(s): K21.9 - Gastro-esophageal reflux disease without esophagitis (5) Class 2 obesity without serious comorbidity with body mass index (BMI) of 35.0 to 35.9 in adult Obesity type: due to excess calories Qualified Code(s): E66.09 - Other obesity due to excess calories; Z68.35 - Body mass index (BMI) 35.0-35.9, adult
--- NOTE | 2018-06-18 12:19 | Pharmacy Report ---
Pharmacy Glycemic Short Note 2 - Date of Service June 18, 2018 - Glycemic Short BSG Results (Last 24 hours): 06/17/18 06/17/18 06/18/18 17:07 20:40 05:19 Glucose 98 POC Glucose 75 120 H 06/18/18 08:00 Glucose POC Glucose 115 H Outpatient Anti-diabetic Regimen: * metformin 500mg PO QDD Risk Factors for Insulin Resistance: * Recent Surgery - POD 1 TKA * Diet - Type 2 DM Assessment & Plan: * 58yo pre-diabetic with adequate control per A1c. Blood sugars at goal * Per ADA recommendations, re-initiating outpatient oral agents 1-2 days prior to discharge, will restart with dinner tonight and discontinue CR. PLAN FOR INPATIENT GLYCEMIC CONTROL: * Resume Metformin 500mg PO daily with dinner today * Bolus insulin: * NovoLog per scale ACHS or Q6hrs while NPO * Goal Range: Low 110 mg/dL - High 140 mg/dL * Correction Factor: 35 mg/dL/unit * Remove - Nutritional / Prandial insulin PLAN FOR DISCHARGE: * A1c at goal, continue Metformin 500mg PO daily with dinner.
[2018-06-18] MEDS ORDERED: METFORMIN HCL 500 MG TAB PO SCH (17:00)
[2018-06-18] MEDS: MAGNESIUM OXIDE 400 MG TAB PO SCH (21:08)
[2018-06-18] MEDS: SENNA 8.6 MG TAB PO SCH (21:09)
[2018-06-18] MEDS: SIMVASTATIN 20 MG TAB PO SCH (21:10)
[2018-06-19] MEDS: TRAMADOL HCL 50 MG TABLET PO PRN ×3 (04:46→15:15)
[2018-06-19 05:45] LABS: Hematocrit (blood only) 40.3 % (42-52); Hemoglobin 13.4 g/dL (14.0-18.0); Mean Corpuscular Hgb Conc 33.3 g/dL (32-36); Mean Corpuscular Volume 88.4 fL (80-100); Mean Platelet Volume 9.5 fL (7.4-10.4); Platelet Count 196 K/uL (130-400); RDW Coefficient of Variation 17.1 % (11.5-14.5); RDW Standard Deviation 55.1 fL (36.4-46.3); Red Blood Count 4.56 M/uL (4.7-6.1); White Blood Count 11.31 K/uL (4.8-10.8)
[2018-06-19 06:12] LABS: BUN Creatinine Ratio 17.9 (10-20); Creatinine Clr Calc Pharmacy 128.4 ml/min; Est GFR (African American) 112.5; Est GFR (Non-African American) 97.1; Potassium 4.1 mmol/L (3.5-5.1)
[2018-06-19] MEDS: ACETAMINOPHEN 500 MG TAB PO SCH ×2 (06:23→13:49)
[2018-06-19] MEDS: PANTOprazole 40 MG TAB PO SCH (08:07)
[2018-06-19] MEDS: FERROUS SULFATE 325 MG TAB PO SCH ×2 (08:07→13:48)
[2018-06-19] MEDS: ALLOPURINOL 300 MG TAB PO SCH (08:07)
[2018-06-19] MEDS: MULTIVITAMIN TAB PO SCH (08:07)
[2018-06-19] MEDS: CeleBREX 200 MG CAP PO SCH (08:07)
[2018-06-19] MEDS: GABAPENTIN 300 MG CAP PO SCH ×2 (08:07→13:48)
[2018-06-19] MEDS: DOCUSATE SODIUM 100 MG CAP PO SCH (08:07)
[2018-06-19] MEDS: ASPIRIN 81 MG ECTAB PO SCH (08:08)
[2018-06-19] MEDS: INSULIN ASPART 100 UNITS/ML 3 ML PEN SC SCH ×2 (08:11→13:27)
--- NOTE | 2018-06-19 08:40 | Orthopedic Progress Note ---
Date of Service June 19, 2018 Assessment & Plan (1) Status post total knee replacement, right: POD #2, Right TKA. DVT proph- ASA. D/C planning- Home w HH today when medically cleared. PT/ OT. As per medicine. Subjective POD #2, Doing well, denies SOB, CP, N/V, states pain controlled well. Feeling well, states did well in PT yesterday x2. Due to syncopal episode yesterday, medicine monitoring in telemetry. Physical Exam 2 Vital Signs (Past 24 Hours): Last Vital Signs Temp 37.2 C 06/19/18 08:02 Pulse 74 06/19/18 08:02 Resp 18 06/19/18 08:02 BP 150/87 H 06/19/18 08:02 Pulse Ox 93 06/19/18 08:02 Physical Exam: Right knee silverlon c/d/i, no drainage, no calf tenderness, toes and ankle mobile, A&Ox3.
--- NOTE | 2018-06-19 09:06 | Hospitalist Progress Note ---
Date of Service June 19, 2018 Assessment & Plan (1) Osteoarthritis of right knee: (2) Status post total knee replacement, right: POD #2 S/P R Total Knee Arthroplasty by Dr Wagner clarke overall (3) Syncope: possible vasovagal syncope, orthostasis -EKG: sinus bradycardia, rate 58 -BP stable asymptomatic no arrhythmias per Tele - recommend outpatient Cardiac monitoring, discussed with patient who will discuss with PCP (4) Pre-diabetes: A1C 5.8 on 05/12/18 resume Metformin (5) Sinus bradycardia by electrocardiogram: Pre-op EKG sinus bradycardia 47 bpm EKG: sinus bradycardia, rate 58 asymptomatic now (6) HLD (hyperlipidemia): -continue statin (7) Cluster headache syndrome: -continue gabapentin 300mg tid (8) Acid reflux: -continue Pantoprazole and ranitidine (9) History of gout: -continue allopurinol (10) Class 2 obesity without serious comorbidity with body mass index (BMI) of 35.0 to 35.9 in adult: -encourage lifestyle modifications (11) DVT prophylaxis: -ASA BID per ortho Disposition: Per Primary Team Follow up: PCP Dr. Solares upon discharge Subjective delayed entry date of service as noted above seen resting in bed, comfortable denies dizziness, palpitations, chest pain, dyspnea no arrhythmia per Tele no syncope/pre syncope patient states he feels better overall Physical Exam 2 Vital Signs (Past 24 Hours): Last Vital Signs Temp 37.2 C 06/19/18 08:02 Pulse 74 06/19/18 08:02 Resp 18 06/19/18 08:02 BP 150/87 H 06/19/18 08:02 Pulse Ox 93 06/19/18 08:02 Physical Exam: General- oriented x 3, not in distress, speaks in sentences with no effort or accessory muscle use Eyes- anicteric Neck- no JVD Lungs- clear breath sounds bilaterally, no rales/wheezes Heart- normal rate, regular rhythm; no murmurs Abdomen- normal bowel sounds, nondistended, soft, nontender Extremities- no pretibial edema, no calf tenderness Neuro- alert, oriented x 3; no gross focal neurologic deficits Skin- warm & dry Results & Data Laboratory Results all noted and reviewed _ (1) Cluster headache syndrome Headache chronicity pattern: unspecified pattern Intractability: not intractable Qualified Code(s): G44.009 - Cluster headache syndrome, unspecified , not intractable (2) HLD (hyperlipidemia) Hyperlipidemia type: unspecified Qualified Code(s): E78.5 - Hyperlipidemia, unspecified (3) Osteoarthritis of right knee Osteoarthritis type: primary Qualified Code(s): M17.11 - Unilateral primary osteoarthritis, right knee (4) Acid reflux Esophagitis presence: esophagitis presence not specified Qualified Code(s): K21.9 - Gastro-esophageal reflux disease without esophagitis (5) Class 2 obesity without serious comorbidity with body mass index (BMI) of 35.0 to 35.9 in adult Obesity type: due to excess calories Qualified Code(s): E66.09 - Other obesity due to excess calories; Z68.35 - Body mass index (BMI) 35.0-35.9, adult
[2018-06-19] MEDS: OXYCODONE HCL IR 5 MG TAB (IMMEDIATE RELEASE) PO PRN (12:46)
--- NOTE | 2018-06-19 13:40 | Pharmacy Report ---
Pharmacy Glycemic Short Note 2 - Date of Service June 19, 2018 - Glycemic Short BSG Results (Last 24 hours): 06/18/18 06/18/18 06/18/18 12:27 17:16 20:37 Glucose POC Glucose 100 H 105 H 131 H 06/18/18 06/19/18 06/19/18 23:54 05:15 07:34 Glucose 96 POC Glucose 105 H 94 06/19/18 11:28 Glucose POC Glucose 91 Outpatient Anti-diabetic Regimen: * metformin 500mg PO QDD Risk Factors for Insulin Resistance: * Recent Surgery - POD 2 TKA * Diet - Type 2 DM Assessment & Plan: 06/19/18 * Blood sugars at goa, no insulin required in past 24 hours, metformin restarted * Patient no longer needs insulin or accuchecks 06/18/18 * 58yo pre-diabetic with adequate control per A1c. Blood sugars at goal * Per ADA recommendations, re-initiating outpatient oral agents 1-2 days prior to discharge, will restart with dinner tonight and discontinue CR. PLAN FOR INPATIENT GLYCEMIC CONTROL: * Metformin 500mg PO daily with dinner * Bolus insulin - DISCONTINUE Novolog PLAN FOR DISCHARGE: * A1c at goal, continue Metformin 500mg PO daily with dinner.
--- NOTE | 2018-06-21 09:14 | Discharge Summary ---
Date of Service July 06, 2018 Discharge Data Consultations 06/11/18 14:54 Consult Hospitalist Routine 06/17/18 09:40 Consult Case Management - Discharge Planning Routine Consult Hospitalist Routine Procedures Performed Operation Date: 06/17/18 07:00 Actual Procedures p Right Total Knee Arthroplasty(Right) - Dorian Edward MD
--- NOTE | 2018-07-04 23:17 | Discharge Summary ---
HISTORY OF PRESENT ILLNESS: This is a 58-year-old male patient of Dr. Edward'annetta complaining of chronic right knee pain, longstanding, now progressively getting worse. The patient has failed conservative treatment, and has been diagnosed with end-stage osteoarthritis per clinical and radiographic exams. The patient has elected to proceed with a right total knee arthroplasty. PAST MEDICAL HISTORY: Hypercholesterolemia, chronic headaches, diabetes mellitus, and acid reflux. POSTOPERATIVE COURSE: The patient underwent a right total knee arthroplasty on 06/17/2018. He was followed closely with medical consultation, DVT prophylaxis in the form of aspirin, physical therapy, and pain control. Postoperative day #1, the patient did have a syncopal episode, most likely vasovagal. EKG shows a sinus bradycardia, blood pressure was stable. The patient was asymptomatic after the event. He was transferred to the telemetry, where there were no arrhythmias overnight. The patient was asymptomatic with no more episodes during his hospital stay. Recommend outpatient monitoring coordinator and this was discussed with the patient. He will follow up with his PCP. PHYSICAL EXAMINATION: On discharge, right knee Silverlon dressing was clean, dry, and intact. There is no redness or drainage. He had no calf tenderness. Negative Homans sign. His toes and ankle were mobile. Neurologically and neurovascularly, he was intact in his right lower extremity. DIAGNOSES: Status post right total knee arthroplasty. He had 1 vasovagal syncopal episodes that appeared to be benign. He will follow with his family physician. He also has a history of hypercholesterolemia, chronic headaches, diabetes mellitus, and acid reflux. PLAN: The patient was discharged home with home health services, will continue his preadmission medications with the addition of pain medications and aspirin twice daily for DVT prophylaxis. The patient will follow up as an outpatient as scheduled.
== END 2018-06-19 15:26 | disposition home health service (06) | DRG 470 ==
LOC: ASU 04:44 → 3E 09:38 → 2S 06-18 18:41
DX: M17.11 Unilateral primary osteoarthritis, right knee; Z68.35 Body mass index [BMI] 35.0-35.9, adult; E78.00 Pure hypercholesterolemia, unspecified; M10.9 Gout, unspecified; Z79.899 Other long term (current) drug therapy; E11.9 Type 2 diabetes mellitus without complications; R55 Syncope and collapse; E66.9 Obesity, unspecified; Z79.84 Long term (current) use of oral hypoglycemic drugs; K21.9 Gastro-esophageal reflux disease without esophagitis

== ENCOUNTER 2022-10-16 21:23 | Inpatient (IN) ==
--- NOTE | 2022-10-16 22:39 | Emergency Department Note ---
History of Present Illness General Chief complaint: GI Assessment Stated complaint: SHARP PAIN IN CHEST, Time Seen by Provider: 10/16/22 22:37 History of Present Illness This 62-year-old male patient presents to the emergency department with his for evaluation of a sharp pain in his chest. He had an EGD done earlier today by Dr. Stiles of [facility]. EGD report showed a normal esophagus, irregular GE junction, normal stomach, normal duodenal bulb, and normal second portion of the duodenum. Multiple biopsies were obtained with cold forceps with biopsy report still pending. About 7 pm tonight he started with sharp pains every 10 minutes in his esophageal and epigastric area that lasted for about 10 seconds and then resolved before returning again. Denies any cardiac type chest pain. Denies SOB. No nausea or vomiting. No fevers. The EGD was being done for evaluation of anemia requiring iron infusions. He stopped his oral iron supplement after starting the iron infusions. The patient states that his white blood cell count has also been elevated recently for an unknown reason. He just had his first appointment with hematology with additional testing performed, but the patient does not know the results of this testing. He had a colonoscopy in July 2022 that showed diverticulosis and polyps per patient. Denies hematochezia, melena, hematuria, hemoptysis, or hematemesis. Currently has a sour taste in his throat all the way down to his stomach. Typically takes Pepcid for acid reflux, which usually controls his reflux symptoms. Not on any blood thinners. Home Medications Medication Instructions Recorded Confirmed Type allopurinol 300 mg tablet 300 mg PO DAILY 05/06/18 10/17/22 History docusate sodium 100 mg tablet 100 mg PO BID PRN Constipation 05/06/18 10/17/22 History cyclobenzaprine 10 mg tablet 10 mg PO TID PRN MUSCLE SPASMS 12/01/19 10/17/22 History diclofenac sodium 1 % topical gel 2 gm topical QID PRN Pain 12/01/19 10/17/22 History famotidine 20 mg tablet 20 mg PO BID 12/01/19 10/17/22 History gabapentin 300 mg capsule 300 mg PO .COMPLEX 12/01/19 10/17/22 History simvastatin 20 mg tablet 20 mg PO PM 12/01/19 10/17/22 History ascorbic acid (vitamin C) 500 mg 250 mg PO DAILY 03/27/21 10/17/22 History tablet (Vitamin C) aspirin 81 mg tablet,delayed 81 mg PO DAILY 03/27/21 10/17/22 History release cyanocobalamin (vitamin B-12) 1,000 mcg PO DAILY 03/27/21 10/17/22 History 1,000 mcg tablet (Vitamin B-12) fluocinonide 0.05 % topical cream 1 applic topical BID PRN DERMATITIS 03/27/21 10/17/22 History metformin 1,000 mg tablet 1,000 mg PO BID 03/27/21 10/17/22 History polyethylene glycol 3350 17 17 g PO DAILY PRN Constipation 03/27/21 10/17/22 History gram/dose oral powder (Miralax) sumatriptan succinate 50 mg tablet 50 mg PO DIRECTED PRN Migraine 03/27/21 10/17/22 History Headache acetaminophen 325 mg tablet 650 mg PO UD 10/17/22 10/17/22 History cholecalciferol (vitamin D3) 25 1,000 unit PO DAILY 10/17/22 10/17/22 History mcg (1,000 unit) tablet (Vitamin D3) meclizine 25 mg chewable tablet 25 mg PO Q8 PRN Dizziness 10/17/22 10/17/22 History nortriptyline 50 mg capsule 150 mg PO DAILY 10/17/22 10/17/22 History urea 40 % topical cream 1 applic topical UD 10/17/22 10/17/22 History Allergies Allergy/AdvReac Type Severity Reaction Status Date / Time ciprofloxacin [From Cipro] AdvReac Unknown "BLOWING Verified 03/27/21 23:48 OUT MY VEINS" Past Med/Surg History Medical History (Updated 10/17/22 @ 07:26 by Shweta Luz PA-C) Acid reflux Arthritis Cluster headache syndrome Headache HEADACHES OVER LAST 2 MON/PCP & NEURO...TESTING ORDERED/NO FINDINGS AT PRESENT--POSSIBLY LYME DZ, POSSIBLY HYPOGLYCEMIA? History of diverticulitis LAST FLARE UP APPROX 3 YRS AGO History of gout Obesity Pre-diabetes A1C 5.8% on 05/12/18 Surgical History History of arthroscopy of right shoulder History of colonoscopy History of endoscopy Family History Brother Family history of lymphoma Brother Family history of prostate cancer Grandfather Family history of prostate cancer Mother Family history of breast cancer Social History Smoking Status: Never smoker Cigarettes Per Day: former chew tobacco; Do You Dip or Chew Tobacco: Yes; Hx Alcohol Use: Yes Alcohol type: beer Hx Substance Use: No Preferred Language: Eritrean Communication Ability: Effective Curriculum Specialist Required: No Beliefs That Will Affect Care: None marital status: Current Living Situation: Spouse Other Information That Helps Us Care for You: No Feels Safe at Home: Yes Safety Concerns: Feels Safe At This Time Assistive Devices: Glasses Review of Systems See HPI for pertinent positives & negatives. Physical Exam Vital Signs Vital Signs - 24 hr 10/16/22 21:34 10/16/22 23:15 10/17/22 01:23 Temperature 37.1 C Temperature Source Temporal Artery Scan Pulse Rate 100 H Pulse Rate [Apical] 88 81 Respiratory Rate 16 16 16 Respiratory Effort / Characteristics Non-Labored Spontaneous Respiratory Depth Normal Blood Pressure 118/81 Blood Pressure [Right Arm] 135/79 142/96 H Blood Pressure Mean 93 Blood Pressure Mean [Right Arm] 97 111 Pulse Oximetry 93 93 94 Oxygen Delivery Method Room Air Room Air Room Air Sepsis Recent Fever Within 48 Hours No Sepsis New/Unexplained Change in Mental Status No Sepsis Action Taken by Nursing No Action Required 10/17/22 02:41 10/17/22 03:04 Temperature Temperature Source Pulse Rate 81 Pulse Rate [Apical] 81 Respiratory Rate 16 Respiratory Effort / Characteristics Respiratory Depth Blood Pressure Blood Pressure [Right Arm] 143/99 H Blood Pressure Mean Blood Pressure Mean [Right Arm] 113 Pulse Oximetry 94 Oxygen Delivery Method Room Air Sepsis Recent Fever Within 48 Hours Sepsis New/Unexplained Change in Mental Status Sepsis Action Taken by Nursing VITALS: Vitals are noted on the nurse's note and reviewed by myself. GENERAL: Non toxic, no acute distress, non-diaphoretic. SKIN: Capillary refill <2 sec. EYES: PERRLA. EOMI. Conjunctivae without injection, sclerae without icterus. NOSE: Patent without discharge. MOUTH: Mucous membranes moist. Uvula midline. Airway patent. NECK: Supple without nuchal rigidity. HEART: Regular rate and rhythm without murmurs gallops or rubs. LUNGS: Clear to auscultation bilaterally without wheezes, rales or rhonchi. No retractions or accessory muscle use. ABDOMEN: Positive bowel sounds x 4. Normal tympanic percussion. Soft, tender to palpation in the epigastric area without masses or organomegaly. Guajardo sign negative. No guarding or rebound tenderness. No focal RLQ or LLQ tenderness. Course Administered Medications Sodium Chloride (Nss 1000ml) 1,000 mls @ 100 mls/hr IV .Q10H MAYITO Stop: 11/16/22 05:57 Last Admin: 10/17/22 06:17 Dose: 100 mls/hr Documented By: BETTY Pantoprazole Sodium 40 mg/ (Dextrose) 100 mls @ 20 mls/hr IV Q5H MAYITO Stop: 11/16/22 05:59 Last Admin: 10/17/22 06:20 Dose: 8 mg/hr, 20 mls/hr Documented By: BETTY Insulin Aspart (Insulin Aspart Per Unit Charge) 0 units SC Q6 MAYITO Stop: 11/16/22 05:59 Last Admin: 10/17/22 06:11 Dose: Not Given Documented By: BETTY Discontinued Medications Pantoprazole Sodium 40 mg/ (Syringe) 10 mls @ 5 mls/min IV NOW ONE Stop: 10/16/22 23:06 Last Admin: 10/17/22 00:48 Dose: 5 mls/min Documented By: LUIS CARLOS Famotidine (Pepcid 20mg Iv Push) 20 mg in 5 mls @ 2.5 mls/min IV NOW STA Stop: 10/16/22 23:06 Last Admin: 10/16/22 23:15 Dose: 2.5 mls/min Documented By: LUIS CARLOS Sodium Chloride (Nss) 500 mls @ 999 mls/hr IV .Q31M ONE Stop: 10/16/22 23:35 Last Infusion: 10/16/22 23:52 Dose: 0 mls/hr Documented By: LUIS CARLOS Admin: 10/16/22 23:15 Dose: 999 mls/hr Documented By: LUIS CARLOS Piperacillin Sod/Tazobactam Sod (Zosyn) 4.5 gm in 120 mls @ 240 mls/hr IV NOW ONE Stop: 10/17/22 01:57 Last Infusion: 10/17/22 02:51 Dose: 0 mls/hr Documented By: LUIS CARLOS Admin: 10/17/22 02:18 Dose: 240 mls/hr Documented By: LUIS CARLOS Ioversol (Optiray 320 500ml) 100 ml IV ONCE ONE Stop: 10/17/22 00:04 Last Admin: 10/17/22 00:03 Dose: 90 ml Documented By: JJ Medical Decision Making Differential Diagnosis Differential diagnosis includes perforation, infection, hepatitis, pancreatitis, cholecystitis, cholelithiasis, gastritis, gastroenteritis, mesenteric adenitis, obstruction,abdominal abscess, abdominal aortic aneurysm, or others. Laboratory Data Attestation: I reviewed the patient's lab results. 10/16/22 22:25 10/16/22 22:25 Lab Results 10/16/22 10/16/22 10/16/22 Range/Units 22:25 22:25 23:10 WBC 21.06 H (4.8-10.8) K/ul RBC 5.45 (4.70-6.10) M/uL Hgb 11.2 L (14.0-18.0) g/dl Hct 38.9 L (42.0-52.0) % MCV 71.4 L (80.0-100.0) fL MCH 20.6 L (25.0-34.0) pg MCHC 28.8 L (32.0-36.0) g/dL RDW Std Deviation 51.0 H (36.4-46.3) fL RDW Coeff of [place] 21.2 H (11.5-14.5) % Plt Count 240 (130-400) K/uL MPV 8.5 L (9.4-12.4) fL Immature Gran % (Auto) 0.2 % Neut % (Auto) 18.4 % Lymph % (Auto) 70.1 % [place] % (Auto) 9.6 % Eos % (Auto) 1.0 % Baso % (Auto) 0.7 % Neut # (Auto) 3.87 (1.40-6.50) K/uL Lymph # (Auto) 14.76 H (1.2-3.4) K/uL [place] # (Auto) 2.03 H (0.11-0.59) K/uL Eos # (Auto) 0.22 (0-0.50) K/uL Baso # (Auto) 0.14 (0-0.2) K/uL Immature Gran # (Auto) 0.04 (0.01-0.20) K/uL Polychromasia 1+ Tear Drop Cells 1+ Sodium 137 (136-145) mmol/L Potassium 4.3 (3.5-5.1) mmol/L Chloride 103 (98-107) mmol/L Carbon Dioxide 23 (21-32) mmol/L Anion Gap 11 (3-11) BUN 20 (6-23) mg/dl Creatinine 0.93 (0.6-1.4) mg/dl Est Cr Clr Drug Dosing 100.2 ml/min Est GFR ( Amer) 100.2 ml/min Est GFR (Non-Af Amer) 86.5 ml/min BUN/Creatinine Ratio 21.5 H (10-20) Glucose 94 (70-99(Fasting)) mg/dl Calcium 9.4 (8.6-10.3) mg/dl Total Bilirubin 0.3 (0.2-1.0) mg/dl AST 21 (13-39) U/L ALT 13 (7-52) U/L Alkaline Phosphatase 94 (34-104) U/L Troponin I High Sens 10.6 (0-20) pg/ml Total Protein 8.1 (6.0-8.3) gm/dl Albumin 4.1 (3.4-5.0) gm/dl Globulin 4.0 (2.5-4.0) gm/dl Albumin/Globulin Ratio 1.0 (0.9-2) Lipase 20 (11-82) U/L Urine Color Dark Yellow Urine Appearance Clear (Clear) Urine pH 5.0 (4.5-7.5) Ur Specific [place] 1.029 (1.000-1.030) Urine Protein Negative (Negative) Urine Glucose (UA) 3+ H (Negative) Urine Ketones Negative (Negative) Urine Blood Negative (Negative) Urine Nitrite Negative (Negative) Urine Bilirubin Negative (Negative) Urine Urobilinogen Negative (Negative) Ur Leukocyte Esterase Negative (Negative) SARS-CoV-2, RNA, NAAT (NEGATIVE) 10/17/22 Range/Units 03:15 WBC (4.8-10.8) K/ul RBC (4.70-6.10) M/uL Hgb (14.0-18.0) g/dl Hct (42.0-52.0) % MCV (80.0-100.0) fL MCH (25.0-34.0) pg MCHC (32.0-36.0) g/dL RDW Std Deviation (36.4-46.3) fL RDW Coeff of [place] (11.5-14.5) % Plt Count (130-400) K/uL MPV (9.4-12.4) fL Immature Gran % (Auto) % Neut % (Auto) % Lymph % (Auto) % [place] % (Auto) % Eos % (Auto) % Baso % (Auto) % Neut # (Auto) (1.40-6.50) K/uL Lymph # (Auto) (1.2-3.4) K/uL [place] # (Auto) (0.11-0.59) K/uL Eos # (Auto) (0-0.50) K/uL Baso # (Auto) (0-0.2) K/uL Immature Gran # (Auto) (0.01-0.20) K/uL Polychromasia Tear Drop Cells Sodium (136-145) mmol/L Potassium (3.5-5.1) mmol/L Chloride (98-107) mmol/L Carbon Dioxide (21-32) mmol/L Anion Gap (3-11) BUN (6-23) mg/dl Creatinine (0.6-1.4) mg/dl Est Cr Clr Drug Dosing ml/min Est GFR ( Amer) ml/min Est GFR (Non-Af Amer) ml/min BUN/Creatinine Ratio (10-20) Glucose (70-99(Fasting)) mg/dl Calcium (8.6-10.3) mg/dl Total Bilirubin (0.2-1.0) mg/dl AST (13-39) U/L ALT (7-52) U/L Alkaline Phosphatase (34-104) U/L Troponin I High Sens (0-20) pg/ml Total Protein (6.0-8.3) gm/dl Albumin (3.4-5.0) gm/dl Globulin (2.5-4.0) gm/dl Albumin/Globulin Ratio (0.9-2) Lipase (11-82) U/L Urine Color Urine Appearance (Clear) Urine pH (4.5-7.5) Ur Specific [place] (1.000-1.030) Urine Protein (Negative) Urine Glucose (UA) (Negative) Urine Ketones (Negative) Urine Blood (Negative) Urine Nitrite (Negative) Urine Bilirubin (Negative) Urine Urobilinogen (Negative) Ur Leukocyte Esterase (Negative) SARS-CoV-2, RNA, NAAT NEGATIVE (NEGATIVE) Imaging Data Radiologist's Impression: Abdomen/Pelvis CT 10/16/22 23:05 Exam(s): CT ABDOMEN + PELVIS With Contrast IV Amt: 90 ml optiray 320 EXAM: CT Abdomen and Pelvis With Intravenous Contrast CLINICAL HISTORY: Reason for exam: chest, abdominal pain, had EGD today. TECHNIQUE: Axial computed tomography images of the abdomen and pelvis with intravenous contrast. CTDI is 27.25 mGy and DLP is 1533.79 mGy-cm. Automated exposure control was utilized for the study. A dose lowering technique was utilized adhering to the principles of ALARA. CONTRAST: Patient received 90 ml optiray 320 of IV contrast COMPARISON: No relevant prior studies available. FINDINGS: Lung bases: Unremarkable. No mass. No consolidation. ABDOMEN: Liver: Unremarkable. No mass. Gallbladder and bile ducts: Unremarkable. No calcified stones. No ductal dilation. Pancreas: Unremarkable. No mass. No ductal dilation. Spleen: Splenomegaly. Adrenals: Unremarkable. No mass. Kidneys and ureters: Unremarkable. No solid mass. No hydronephrosis. Stomach and bowel: Diverticulosis without evidence of diverticulitis. No obstruction. PELVIS: Appendix: Postoperative changes prior appendectomy. Bladder: Unremarkable. No mass. Reproductive: 9.7 x 10.4 cm left ovarian cyst. ABDOMEN and PELVIS: Intraperitoneal space: Unremarkable. No free air. No significant fluid collection. Bones/joints: No acute fracture. No dislocation. Soft tissues: Unremarkable. Vasculature: Unremarkable. No abdominal aortic aneurysm. Lymph nodes: Unremarkable. No enlarged lymph nodes. IMPRESSION: 1. Splenomegaly 2. Other minor chronic findings as described above 3. CT of the abdomen and pelvis is negative for acute intra-abdominal pathology Electronically signed by: Massimo Monreal MD 10/17/22 01:[address] 10/16/22 23:05 CR Exam(s): CT CHEST With Contrast IV Amt: 90 ml optiray 320 EXAM: CT Chest With Intravenous Contrast CLINICAL HISTORY: Reason for exam: chest/epigastric pain, EGD earlier today. TECHNIQUE: Axial computed tomography images of the chest with intravenous contrast. CTDI is 28.14 mGy and DLP is 993.24 mGy-cm. Automated exposure control was utilized for the study. A dose lowering technique was utilized adhering to the principles of ALARA. CONTRAST: Patient received 90 ml optiray 320 of IV contrast COMPARISON: No relevant prior studies available. FINDINGS: Lungs: Unremarkable. No mass. No consolidation. Pleural space: Unremarkable. No pneumothorax. No significant effusion. Heart: Unremarkable. No cardiomegaly. No significant pericardial effusion. No significant coronary artery calcifications. Bones/joints: Unremarkable. No acute fracture. No dislocation. Soft tissues: Unremarkable. Vasculature: Unremarkable. No thoracic aortic aneurysm. Lymph nodes: Unremarkable. No enlarged lymph nodes. Intraperitoneal space: Circumferential wall thickening of the esophagus present. No large extraluminal gas present on this exam. There is a tiny locule of extraluminal gas adjacent to the esophagus measuring 0.4 cm just to the level of the irene.. There is a second tiny locule of air adjacent to the esophagus at the level of the thoracic inlet. IMPRESSION: 1. Findings consistent with a tiny microperforation. No large pneumomediastinum. 2. CT of the lungs with contrast otherwise unremarkable. Communications: Call Doctor Pneumomediastinum Electronically signed by: Massimo Monreal MD 10/17/22 01:22 AM [facility] Narrative I examined the patient. I spoke with case management who was able to obtain the patient's EGD report from today. The EGD report was reviewed by myself as above. An IV lock was placed and labs were drawn. He was given 500 mL normal saline solution bolus. He was given Protonix 40 mg IV and Pepcid 20 mg IV with improvement of his discomfort. He declined any additional medication for pain while in the emergency department. EKG was interpreted by myself as normal sinus rhythm at 96 bpm with LVH, but no acute ST or T wave changes. Continuous court monitor: Order was placed for continuous court monitor. Patient was placed on the court monitor and continuous pulse ox. Patient was noted to be in normal sinus rhythm at an initial rate of 88 bpm per my interpretation. White blood cell count elevated at 21.06. Hemoglobin low at 11.2. Platelet count normal at 240. The patient's MCV, MCH, and MCHC are low. His lymphocyte count and monocyte count are elevated. He has 1+ polychromasia as well as 1+ teardrop cells. The patient has been getting iron infusions and has been being worked up for anemia. He states that he also recently saw hematology for further work-up, but no definitive diagnosis at this time per patient. The patient also states that he has been having progressively more elevated white blood cell counts as an outpatient. I spoke with case management who obtained the patient's laboratory results from the [place]. His white blood cell count on 04/09/2022 was 12.9 and on 08/12/2022 his white blood cell count was 16.9. CMP and lipase were normal. High-sensitivity troponin was normal. Urinalysis with 3+ glucose, but no evidence for UTI or blood. Blood cultures are pending. COVID []. CT scans of the chest, abdomen, and pelvis with IV contrast were reviewed by myself and read by radiology as above and show 2 tiny microperforations around the esophagus with no large pneumomediastinum. There is also splenomegaly. No other acute abnormalities. I had a meaningful discussion about this patient with Dr. Calderon who agrees with my assessment and the treatment plan. I spoke with Dr. Busby who is on-call for GI in regards to the patient's findings. He recommended the patient be transferred to a facility with cardiothoracic surgery due to the microperforations. I spoke with Dr. Garcia of GI at [facility] in [place] who accepted the patient in transfer and the patient will be admitted to Dr. Whalen of medicine. However, there is no bed availability for 24 hours per the transfer center. Therefore, I contacted the on-call hospitalist for [facility] who agreed to admit the patient here until a bed became available for transfer. Please refer to their dictation for further details. The patient was admitted in stable condition. Impression & Plan Perforation of esophagus Discharge Plan Visit Data Chief Complaint: GI Assessment Stated Complaint: SHARP PAIN IN CHEST, ED Provider: Shane Calderon ED Midlevel Provider: Shweta Luz Discharge Problem: Perforation of esophagus Patient Disposition: Admitted As Inpatient Condition: Good Discharge Instructions Interventions: ED Discharge Assessment Last Done: 10/17/22 05:24
[2022-10-16] MEDS ORDERED: PANTOprazole 40 MG in SYRINGE 0 ML IV ONE (23:05)
[2022-10-16] MEDS ORDERED: SODIUM CHLORIDE 0.9% 500 ML IV ONE (23:05)
[2022-10-16] MEDS ORDERED: FAMOTIDINE 20MG IV PUSH 20 MG/5 ML SYR IV STA (23:05)
[2022-10-16 23:08] LABS: Albumin Level 4.1 gm/dl (3.4-5.0); BUN Creatinine Ratio 21.5 (10-20); Bilirubin,Total 0.3 mg/dl (0.2-1.0); Calcium 9.4 mg/dl (8.6-10.3); Creatinine Clr Calc Pharmacy 100.2 ml/min; Est GFR (African American) 100.2 ml/min; Est GFR (Non-African American) 86.5 ml/min; Potassium 4.3 mmol/L (3.5-5.1); Total Protein 8.1 gm/dl (6.0-8.3)
[2022-10-16 23:29] LABS: Appearance Urine Clear (Clear); Bilirubin Urine Negative (Negative); Blood Urine Negative (Negative); Color Urine Dark Yellow; Glucose Urine UA 3+ (Negative); Ketones Urine Negative (Negative); Leukocyte Esterase Urine Negative (Negative); Nitrite Urine Negative (Negative); Protein Urine Negative (Negative); Specific Gravity Urine 1.029 (1.000-1.030); Urobilinogen Urine Negative (Negative)
[2022-10-16 23:56] LABS: Troponin I High Sensitivity 10.6 pg/ml (0-20)
[2022-10-17] MEDS ORDERED: OPTIRAY 320 500ml IV ONE (00:03)
[2022-10-17 00:32] LABS: Basophils # (auto) 0.14 K/uL (0-0.2); Basophils % (auto) 0.7 %; Eosinophils # (auto) 0.22 K/uL (0-0.50); Hematocrit (blood only) 38.9 % (42.0-52.0); Hemoglobin 11.2 g/dl (14.0-18.0); Immature Granulocytes # (auto) 0.04 K/uL (0.01-0.20); Immature Granulocytes % (auto) 0.2 %; Lymphocytes # (auto) 14.76 K/uL (1.2-3.4); Lymphocytes % (auto) 70.1 %; Mean Corpuscular Hemoglobin 20.6 pg (25.0-34.0); Mean Corpuscular Hgb Conc 28.8 g/dL (32.0-36.0); Mean Corpuscular Volume 71.4 fL (80.0-100.0); Mean Platelet Volume 8.5 fL (9.4-12.4); Monocytes # (auto) 2.03 K/uL (0.11-0.59); Monocytes % (auto) 9.6 %; Neutrophils # (auto) 3.87 K/uL (1.40-6.50); Neutrophils % (auto) 18.4 %; Platelet Count 240 K/uL (130-400); Polychromasia 1+; RDW Coefficient of Variation 21.2 % (11.5-14.5); Red Blood Count 5.45 M/uL (4.70-6.10); Tear Drop Cells 1+; White Blood Count 21.06 K/ul (4.8-10.8)
--- NOTE | 2022-10-17 01:23 | CT Scan Report ---
Exam(s): CT CHEST With Contrast IV Amt: 90 ml optiray 320 EXAM: CT Chest With Intravenous Contrast CLINICAL HISTORY: Reason for exam: chest/epigastric pain, EGD earlier today. TECHNIQUE: Axial computed tomography images of the chest with intravenous contrast. CTDI is 28.14 mGy and DLP is 993.24 mGy-cm. Automated exposure control was utilized for the study. A dose lowering technique was utilized adhering to the principles of ALARA. CONTRAST: Patient received 90 ml optiray 320 of IV contrast COMPARISON: No relevant prior studies available. FINDINGS: Lungs: Unremarkable. No mass. No consolidation. Pleural space: Unremarkable. No pneumothorax. No significant effusion. Heart: Unremarkable. No cardiomegaly. No significant pericardial effusion. No significant coronary artery calcifications. Bones/joints: Unremarkable. No acute fracture. No dislocation. Soft tissues: Unremarkable. Vasculature: Unremarkable. No thoracic aortic aneurysm. Lymph nodes: Unremarkable. No enlarged lymph nodes. Intraperitoneal space: Circumferential wall thickening of the esophagus present. No large extraluminal gas present on this exam. There is a tiny locule of extraluminal gas adjacent to the esophagus measuring 0.4 cm just to the level of the irene.. There is a second tiny locule of air adjacent to the esophagus at the level of the thoracic inlet. IMPRESSION: 1. Findings consistent with a tiny microperforation. No large pneumomediastinum. 2. CT of the lungs with contrast otherwise unremarkable. Communications: Call Doctor Pneumomediastinum Electronically signed by: Massimo Monreal MD 10/17/22 01:22 AM
[2022-10-17] MEDS ORDERED: PIPERACILLIN/TAZOBACTAM 4.5 GM/120 ML BAG IV ONE (01:28)
--- NOTE | 2022-10-17 01:30 | CT Scan Report ---
Exam(s): CT ABDOMEN + PELVIS With Contrast IV Amt: 90 ml optiray 320 EXAM: CT Abdomen and Pelvis With Intravenous Contrast CLINICAL HISTORY: Reason for exam: chest, abdominal pain, had EGD today. TECHNIQUE: Axial computed tomography images of the abdomen and pelvis with intravenous contrast. CTDI is 27.25 mGy and DLP is 1533.79 mGy-cm. Automated exposure control was utilized for the study. A dose lowering technique was utilized adhering to the principles of ALARA. CONTRAST: Patient received 90 ml optiray 320 of IV contrast COMPARISON: No relevant prior studies available. FINDINGS: Lung bases: Unremarkable. No mass. No consolidation. ABDOMEN: Liver: Unremarkable. No mass. Gallbladder and bile ducts: Unremarkable. No calcified stones. No ductal dilation. Pancreas: Unremarkable. No mass. No ductal dilation. Spleen: Splenomegaly. Adrenals: Unremarkable. No mass. Kidneys and ureters: Unremarkable. No solid mass. No hydronephrosis. Stomach and bowel: Diverticulosis without evidence of diverticulitis. No obstruction. PELVIS: Appendix: Postoperative changes prior appendectomy. Bladder: Unremarkable. No mass. Reproductive: 9.7 x 10.4 cm left ovarian cyst. ABDOMEN and PELVIS: Intraperitoneal space: Unremarkable. No free air. No significant fluid collection. Bones/joints: No acute fracture. No dislocation. Soft tissues: Unremarkable. Vasculature: Unremarkable. No abdominal aortic aneurysm. Lymph nodes: Unremarkable. No enlarged lymph nodes. IMPRESSION: 1. Splenomegaly 2. Other minor chronic findings as described above 3. CT of the abdomen and pelvis is negative for acute intra-abdominal pathology Electronically signed by: Massimo Monreal MD 10/17/22 01:29 AM
[2022-10-17] MEDS ORDERED: CARBOHYDRATES FOR HYPOGLYCEMIA PO PRN (05:58)
[2022-10-17] MEDS ORDERED: MoRPHine SULFATE 2 MG/ML CARP IV PRN (05:58)
[2022-10-17] MEDS ORDERED: GLUCAGON FOR INJ 1 MG VIAL SQ PRN (05:58)
[2022-10-17] MEDS ORDERED: DEXTROSE 50% 50 ML SYRINGE IV PRN (05:58)
[2022-10-17] MEDS ORDERED: GLUCOSE 10 TAB/TUBE PO PRN (05:58)
[2022-10-17] MEDS ORDERED: GLUCOSE 40% GEL 15 GM TUBE PO PRN (05:58)
[2022-10-17] MEDS ORDERED: ONDANSETRON INJ 2 MG/ML 2 ML VIAL IV PRN (05:58)
[2022-10-17] MEDS: INSULIN ASPART PER UNIT CHARGE SC SCH ×4 (06:11→23:56)
[2022-10-17] MEDS: SODIUM CHLORIDE 0.9% 1000ML 1,000 ML IV SCH ×2 (06:17→15:34)
[2022-10-17] MEDS: PANTOprazole 40 MG in DEXTROSE 5% 100 ML IV SCH ×4 (06:20→19:29)
--- NOTE | 2022-10-17 07:45 | History and Physical Report ---
DATE OF ADMISSION: 10/16/2022. CHIEF COMPLAINT: Status post EGD. Chest pain post EGD. HISTORY OF PRESENT ILLNESS: This is a 62-year-old male with past medical history significant for hyperlipidemia, gout, diabetes, obesity, diverticulosis of colon, chronic headaches, iron-deficiency anemia, who presents with chest pain post EGD. The patient had EGD around 11:30 yesterday morning and at 7:00 p.m., he noticed to have sharp pain in the lower chest, very severe in nature every 15 minutes, which prompted him to come to the ER. Imaging studies showed microperforation of the esophagus. ER talked to on-call GI and they recommended transfer to tertiary care where CT Surgery is available. The patient was accepted at [facility], but they do not have beds, so we are called for admission for overnight. The patient received Protonix, Zosyn and Pepcid IV. Currently, pain is under control. The patient is comfortable, hemodynamically stable. Denies any shortness of breath, no nausea, no vomiting, no diarrhea or constipation. No blood in the stools. Normal micturition. No fevers, no headache, no blurred vision, no earache, no runny nose, no sore throat. The patient has chronic leukocytosis, getting worked up with hem/onc and also anemia, currently on IV iron infusions. ALLERGIES: CIPROFLOXACIN. PAST MEDICAL HISTORY: As mentioned above. PAST SURGICAL HISTORY: Right total knee replacement, colonoscopy, left shoulder surgery. MEDICATIONS: The patient is on Tylenol 650 mg p.r.n., allopurinol 300 mg p.o. daily, vitamin C 250 mg p.o. daily, aspirin 81 mg p.o. daily, vitamin B12 1000 mcg p.o. daily, cyclobenzaprine 10 mg p.o. t.i.d. p.r.n., Colace 100 mg p.o. b.i.d. p.r.n., famotidine 20 mg p.o. b.i.d., gabapentin 300 mg as directed, meclizine 25 mg p.o. q.8 hours p.r.n., metformin 1000 mg p.o. b.i.d., nortriptyline 150 mg p.o. daily, MiraLax 17 g p.o. daily p.r.n., simvastatin 20 mg p.o. p.m., sumatriptan 50 mg p.r.n. FAMILY HISTORY: Significant for sister has alcoholism, diabetes; mother has breast cancer; brother has heart disease; father had cirrhosis. SOCIAL HISTORY: , brar. Quit smoking in 2005. Alcohol rarely. No drug use. REVIEW OF SYMPTOMS: As per HPI. Rest of review of symptoms is negative. PHYSICAL EXAMINATION: GENERAL: The patient is of moderate build, not in acute distress. VITAL SIGNS: Temperature 37.1, pulse 81, respiratory rate 16, blood pressure 143/99 and oxygen 94% on room air. HEENT: Pupils equal, round and reactive to light. Oral mucosa moist. NECK: No JVD. No neck masses. CARDIOVASCULAR: S1 and S2 heard. Regular rate and rhythm. No murmur, no gallop. RESPIRATORY SYSTEM: Normal AP diameter. No accessory muscle use. No wheezing, no crackles. ABDOMEN: Soft, bowel sounds present, nontender, no distention. CENTRAL NERVOUS SYSTEM: Cranial nerves II-XII grossly intact, nonfocal. EXTREMITIES: No edema, no erythema. LABORATORY DATA: WBC 21, hemoglobin 11.2, hematocrit 38.9, platelets 240. Sodium 137, potassium 4.3, chloride 103, bicarbonate 23, BUN 20, creatinine 0.9, serum glucose 94, calcium 9.4, total bilirubin 0.3, AST 21, ALT 13, alkaline phosphatase 94. Troponin I high sensitivity 10.6. Lipase 20. Urinalysis negative. SARS-CoV-2 rapid test negative. IMAGING: CT chest with IV contrast:1. Findings consistent with a tiny microperforation. No large pneumomediastinum. 2. CT of the lungs with contrast otherwise unremarkable. CT abdomen and pelvis with IV contrast, : 1. Splenomegaly 2. Other minor chronic findings as described above 3. CT of the abdomen and pelvis is negative for acute intra-abdominal pathology ELECTROCARDIOGRAM: Normal sinus rhythm at a rate of 96, no acute ST changes seen. ASSESSMENT AND PLAN: This is a 62-year-old male who presents with chest discomfort/pain post esophagogastroduodenoscopy and found to have microperforation of his esophagus. 1. Chest pain post esophagogastroduodenoscopy and microperforation of the esophagus: Gastrointestinal recommended transfer to tertiary care where cardiothoracic surgery is available. Emergency Room talked to the [facility], Dr. Garcia, and he accepted the patient in transfer and the patient will be admitted to Dr. Whalen of medicine, but because there is no bed availability for 24 hours, we are going to admit the patient in the hospital. While the patient is here, we will consult gastrointestinal, keep him n.p.o., IV fluids, IV Pepcid b.i.d., and Protonix drip. Closely monitor in telemetry floor. Follow the repeat laboratories. 2. Diabetes: Hold metformin. Place him on insulin sliding scale. Follow the blood sugars, follow HbA1c levels. 3. History of sleep apnea: On CPAP at bedtime. 4. History of gout: Hold allopurinol, hold p.o. medication for now. 5. Hyperlipidemia: Hold p.o. medications for now. 6. Iron-deficiency anemia: Currently getting IV Venofer infusions. Following with hematology/oncology. 7. Leukocytosis: Seems chronic. Getting worked up with hematology/oncology. 8. Deep venous thrombosis prophylaxis: Sequential compression devices for now. DISPOSITION: Closely monitor in the tele floor. Await transfer to [facility]. Level 1, full code. Job ID: [id number] [facility]
[2022-10-17 08:11] LABS: BUN Creatinine Ratio 20.4 (10-20); Calcium 8.8 mg/dl (8.6-10.3); Creatinine Clr Calc Pharmacy 100.4 ml/min; Est GFR (African American) 100.2 ml/min; Est GFR (Non-African American) 86.5 ml/min; Magnesium 2.1 mg/dl (1.7-2.4); Potassium 4.2 mmol/L (3.5-5.1)
[2022-10-17 08:30] LABS: Estimated Average Glucose 154 mg/dl
[2022-10-17 08:32] LABS: Hematocrit (blood only) 35.4 % (42.0-52.0); Hemoglobin 10.4 g/dl (14.0-18.0); Mean Corpuscular Hgb Conc 29.4 g/dL (32.0-36.0); Mean Corpuscular Volume 71.5 fL (80.0-100.0); Mean Platelet Volume 8.5 fL (9.4-12.4); Platelet Count 211 K/uL (130-400); RDW Coefficient of Variation 21.3 % (11.5-14.5); RDW Standard Deviation 51.6 fL (36.4-46.3); Red Blood Count 4.95 M/uL (4.70-6.10); White Blood Count 17.56 K/ul (4.8-10.8)
[2022-10-17] MEDS: PIPERACILLIN/TAZOBACTAM 4.5 GM in DEXTROSE 5% 100 ML IV SCH ×3 (08:34→21:06)
[2022-10-17] MEDS: FAMOTIDINE 20 MG in SYRINGE 3 ML IV SCH ×2 (08:35→21:05)
[2022-10-17 08:42] LABS: Basophils # (auto) 0.11 K/uL (0-0.2); Basophils % (auto) 0.6 %; Eosinophils # (auto) 0.17 K/uL (0-0.50); Immature Granulocytes # (auto) 0.03 K/uL (0.01-0.20); Immature Granulocytes % (auto) 0.2 %; Lymphocytes # (auto) 12.64 K/uL (1.2-3.4); Monocytes # (auto) 1.66 K/uL (0.11-0.59); Monocytes % (auto) 9.5 %; Neutrophils # (auto) 2.95 K/uL (1.40-6.50); Neutrophils % (auto) 16.7 %; Polychromasia 1+
--- NOTE | 2022-10-17 10:13 | Gastrointestinal Consultation ---
Date of Consultation October 17, 2022 Assessment & Plan (1) Perforation of esophagus: Pt is a 62 yo male w microperforation of esophagus w pneumomediastinum present s/p EGD procedure on 10/17/2022. EGD done for anemia evaluation, exam was normal except GE junction abnormalities. Biopsies taken from esophagus, stomach and duodenum. He is hemodynamically stable and comfortable on exam currently wo any more chest pain, abd pain, n/v symptoms. Blood ct stable as well - Keep NPO - Continue Zosyn IV - Continue PPI gtt - Awaiting transfer [place] [facility] [place] bed availability Supervising Physician Co-Signing Physician Notes Attending attestation I have seen, examined this patient, and agree with the findings and above by our mid-level provider CLOTILDE Chavez, with the following additions: ? small pockets of air in mediastinum. Pain has entirely resolved, unlikely to need any intervention, agree with abx, IV BiD PPI NPO for now, he is being transferred to facility with CT surgery for continued observation History of Present Illness Reason for Consultation: Esophageal microperforation Requesting Physician: Dr. Himanshu Olson Attending Physician: Dr. Jarad Argueta History of Present Illness Patient is a 62 years old male with past medical history including hyperlipidemia, gout, diabetes, obesity, colon diverticulosis, headaches, iron deficiency anemia who presented to the ED last night with complaints of chest pain. Patient had EGD around 1130 yesterday morning and at 7 PM he noticed sharp pain symptoms in the lower chest that severe in nature, occurring every 15 minutes. EGD was done for evaluation of anemia which showed normal exam except for irregular GE junction. Biopsies taken in the esophagus stomach and duodenum areas. Biopsy results pending. On evaluation, noted to have leukocytosis, no significant anemia worse than his baseline, CT chest, abdomen and pelvis obtained which showed microperforation in esophagus level of irene and also thoracic inlet. Pneumomediastinum present as well. On-call GI physician (Dr. Elkin Busby) was consulted last night and advised transfer to tertiary care center with CT surgery support. Patient has been accepted at [facility] but currently no bed assignment due to beds not available. Patient is currently n.p.o., receiving IV antibiotics, and Protonix drip. He reports that chest pain is no longer present, he denies any abdominal pain, nausea or vomiting. Vitals are stable. Allergies Allergy/AdvReac Type Severity Reaction Status Date / Time ciprofloxacin [From Cipro] AdvReac Unknown "BLOWING Verified 03/27/21 23:48 OUT MY VEINS" Home Medications Medication Instructions Recorded Confirmed Type allopurinol 300 mg tablet 300 mg PO DAILY 05/06/18 10/17/22 History docusate sodium 100 mg tablet 100 mg PO BID PRN Constipation 05/06/18 10/17/22 History cyclobenzaprine 10 mg tablet 10 mg PO TID PRN MUSCLE SPASMS 12/01/19 10/17/22 History diclofenac sodium 1 % topical gel 2 gm topical QID PRN Pain 12/01/19 10/17/22 History famotidine 20 mg tablet 20 mg PO BID 12/01/19 10/17/22 History gabapentin 300 mg capsule 300 mg PO .COMPLEX 12/01/19 10/17/22 History simvastatin 20 mg tablet 20 mg PO PM 12/01/19 10/17/22 History ascorbic acid (vitamin C) 500 mg 250 mg PO DAILY 03/27/21 10/17/22 History tablet (Vitamin C) aspirin 81 mg tablet,delayed 81 mg PO DAILY 03/27/21 10/17/22 History release cyanocobalamin (vitamin B-12) 1,000 mcg PO DAILY 03/27/21 10/17/22 History 1,000 mcg tablet (Vitamin B-12) fluocinonide 0.05 % topical cream 1 applic topical BID PRN DERMATITIS 03/27/21 10/17/22 History metformin 1,000 mg tablet 1,000 mg PO BID 03/27/21 10/17/22 History polyethylene glycol 3350 17 17 g PO DAILY PRN Constipation 03/27/21 10/17/22 History gram/dose oral powder (Miralax) sumatriptan succinate 50 mg tablet 50 mg PO DIRECTED PRN Migraine 03/27/21 10/17/22 History Headache acetaminophen 325 mg tablet 650 mg PO UD 10/17/22 10/17/22 History cholecalciferol (vitamin D3) 25 1,000 unit PO DAILY 10/17/22 10/17/22 History mcg (1,000 unit) tablet (Vitamin D3) meclizine 25 mg chewable tablet 25 mg PO Q8 PRN Dizziness 10/17/22 10/17/22 History nortriptyline 50 mg capsule 150 mg PO DAILY 10/17/22 10/17/22 History urea 40 % topical cream 1 applic topical UD 10/17/22 10/17/22 History Patient History Medical History Acid reflux Arthritis Cluster headache syndrome Headache HEADACHES OVER LAST 2 MON/PCP & NEURO...TESTING ORDERED/NO FINDINGS AT PRESENT--POSSIBLY LYME DZ, POSSIBLY HYPOGLYCEMIA? History of diverticulitis LAST FLARE UP APPROX 3 YRS AGO History of gout Obesity Pre-diabetes A1C 5.8% on 05/12/18 Surgical History History of arthroscopy of right shoulder History of colonoscopy History of endoscopy Family History Brother Family history of lymphoma Brother Family history of prostate cancer Grandfather Family history of prostate cancer Mother Family history of breast cancer Social History Smoking Status: Never smoker Cigarettes Per Day: former chew tobacco; Do You Dip or Chew Tobacco: Yes; Hx Alcohol Use: Yes Alcohol type: beer Hx Substance Use: No Preferred Language: Pashto Communication Ability: Effective Display Associate Required: No Beliefs That Will Affect Care: None marital status: Current Living Situation: Spouse Other Information That Helps Us Care for You: No Feels Safe at Home: Yes Safety Concerns: Feels Safe At This Time Assistive Devices: Glasses Review of Systems Review of Systems: All systems reviewed & are unremarkable except as noted in HPI & below Physical Exam Constitutional: WD/WN, vitals as above well groomed, cooperative and comfortable Eyes: PERRL, conjunctivae normal, anicteric sclerae ENMT: external ear and nose normal, oropharynx normal Respiratory: normal respiratory effort, lungs clear to auscultation Cardiovascular: RRR, no murmur, no edema Gastrointestinal (Abdomen): normal bowel sounds, soft, nontender, no hepatosplenomegaly Skin: no rashes, warm and dry no jaundice Psychiatric: A+Ox3, euthymic affect Lymphatic: no lymphedema Results & Data Vital Signs (Past 12 Hours) Vital Signs Temp Pulse Pulse Resp BP Pulse Ox O2 Del Method 10/17/22 08:00 77 10/17/22 07:19 36.5 C 76 18 118/68 95 Room Air 10/17/22 06:00 72 10/17/22 05:50 36.3 C L 80 18 120/73 95 Room Air 10/17/22 05:19 65 16 114/65 95 Room Air 10/17/22 03:04 81 16 143/99 H 94 Room Air 10/17/22 02:41 81 10/17/22 01:23 81 16 142/96 H 94 Room Air 10/16/22 23:15 88 16 135/79 93 Room Air
--- NOTE | 2022-10-17 10:33 | Communication Note ---
Date of Service: October 17, 2022 Current Inpatient Medications Dextrose (Dextrose 50% 50 Ml Syringe) 25 - 50 ml IV UD PRN; Protocol PRN Reason: Hypoglycemia Protocol Stop: 11/16/22 05:57 Glucagon (Glucagon For Inj 1 Mg Vial) 1 mg SQ UD PRN; Protocol PRN Reason: Hypoglycemia Protocol Stop: 11/16/22 05:57 Glucose (Glucose 10 Tab/Tube) 4 - 8 tab PO UD PRN; Protocol PRN Reason: Hypoglycemia Treatment Stop: 11/16/22 05:57 Glucose (Glucose 40% Gel 15 Gm Tube) 15 - 30 gm PO UD PRN; Protocol PRN Reason: Hypoglycemia Protocol Stop: 11/16/22 05:57 Sodium Chloride (Nss 1000ml) 1,000 mls @ 100 mls/hr IV .Q10H MAYITO Stop: 11/16/22 05:57 Last Admin: 10/17/22 06:17 Dose: 100 mls/hr Famotidine 20 mg/ Syringe 5 mls @ 2.5 mls/min IV BID MAYITO Stop: 11/16/22 08:59 Last Admin: 10/17/22 08:35 Dose: 2.5 mls/min Pantoprazole Sodium 40 mg/ (Dextrose) 100 mls @ 20 mls/hr IV Q5H MAYITO Stop: 11/16/22 05:59 Last Admin: 10/17/22 06:20 Dose: 8 mg/hr, 20 mls/hr Piperacillin Sod/Tazobactam (Sod 4.5 gm/ Dextrose) 120 mls @ 30 mls/hr IV Q8H MAYITO; Protocol Stop: 10/27/22 07:59 Last Admin: 10/17/22 08:34 Dose: 30 mls/hr Insulin Aspart (Insulin Aspart Per Unit Charge) 0 units SC Q6 MAYITO Stop: 11/16/22 05:59 Last Admin: 10/17/22 06:11 Dose: Not Given Miscellaneous (Carbohydrates For Hypoglycemia ) 15 - 30 gm PO UD PRN PRN Reason: Hypoglycemia Protocol Stop: 11/16/22 05:57 Morphine Sulfate (Morphine Sulfate 2 Mg/Ml Carp) 2 mg IV Q4H PRN PRN Reason: Pain Stop: 10/31/22 05:57 Ondansetron HCl (Ondansetron Inj 2 Mg/Ml 2 Ml Vial) 4 mg IV Q6H PRN PRN Reason: Nausea Stop: 11/16/22 05:57
--- NOTE | 2022-10-17 12:27 | Discharge Summary ---
Date of Service October 17, 2022 Admission HPI Per Admitting Provider This is a 62-year-old male with past medical history significant for hyperlipidemia, gout, diabetes, obesity, diverticulosis of colon, chronic headaches, iron-deficiency anemia, who presents with chest pain post EGD. The patient had EGD around 11:30 yesterday morning and at 7:00 p.m., he noticed to have sharp pain in the lower chest, very severe in nature every 15 minutes, which prompted him to come to the ER. Imaging studies showed microperforation of the esophagus. ER talked to on-call GI and they recommended transfer to tertiary care where CT Surgery is available. The patient was accepted at [facility], but they do not have beds, so we are called for admission for overnight. The patient received Protonix, Zosyn and Pepcid IV. Currently, pain is under control. The patient is comfortable, hemodynamically stable. Denies any shortness of breath, no nausea, no vomiting, no diarrhea or constipation. No blood in the stools. Normal micturition. No fevers, no headache, no blurred vision, no earache, no runny nose, no sore throat. The patient has chronic leukocytosis, getting worked up with hem/onc and also anemia, currently on IV iron infusions. Admission Exam Per Admitting Provider GENERAL: The patient is of moderate build, not in acute distress. VITAL SIGNS: Temperature 37.1, pulse 81, respiratory rate 16, blood pressure 143/99 and oxygen 94% on room air. HEENT: Pupils equal, round and reactive to light. Oral mucosa moist. NECK: No JVD. No neck masses. CARDIOVASCULAR: S1 and S2 heard. Regular rate and rhythm. No murmur, no gallop. RESPIRATORY SYSTEM: Normal AP diameter. No accessory muscle use. No wheezing, no crackles. ABDOMEN: Soft, bowel sounds present, nontender, no distention. CENTRAL NERVOUS SYSTEM: Cranial nerves II-XII grossly intact, nonfocal. EXTREMITIES: No edema, no erythema. Principal Diagnosis Esophageal perforation with pneumomediastinum status post EGD Discharge Exam General: Sitting comfortably in bed, not in distress, on room air HEENT: EOMI, QUINTON, MMM Chest: Clear breath sounds bilaterally, no wheezes or crackles CVS: Regular rate and rhythm, normal heart sounds, no murmur Abdomen: Soft, non tender, not distended, normal bowel sounds Neuro: Awake, alert, oriented, conversing well, non focal Extremities: No cyanosis, clubbing or edema Discharge Data Allergies Allergy/AdvReac Type Severity Reaction Status Date / Time ciprofloxacin [From Cipro] AdvReac Unknown "BLOWING Verified 03/27/21 23:48 OUT MY VEINS" Consultations 10/17/22 08:00 Consult Gastroenterology Routine 10/17/22 10:30 Burn CD for patient Stat Ordered Studies 10/16/22 23:05 CT Abd and Pelvis [CT abd pelvis IV con only] Stat CT chest diagnostic w con Stat Laboratory Results WBC 17.56 K/ul (4.8-10.8) H 10/17/22 07:14 RBC 4.95 M/uL (4.70-6.10) 10/17/22 07:14 Hgb 10.4 g/dl (14.0-18.0) L 10/17/22 07:14 Hct 35.4 % (42.0-52.0) L 10/17/22 07:14 MCV 71.5 fL (80.0-100.0) L 10/17/22 07:14 MCH 21.0 pg (25.0-34.0) L 10/17/22 07:14 MCHC 29.4 g/dL (32.0-36.0) L 10/17/22 07:14 RDW Std Deviation 51.6 fL (36.4-46.3) H 10/17/22 07:14 RDW Coeff of [place] 21.3 % (11.5-14.5) H 10/17/22 07:14 Plt Count 211 K/uL (130-400) 10/17/22 07:14 MPV 8.5 fL (9.4-12.4) L 10/17/22 07:14 Immature Gran % (Auto) 0.2 % 10/17/22 07:14 Neut % (Auto) 16.7 % 10/17/22 07:14 Lymph % (Auto) 72.0 % 10/17/22 07:14 [place] % (Auto) 9.5 % 10/17/22 07:14 Eos % (Auto) 1.0 % 10/17/22 07:14 Baso % (Auto) 0.6 % 10/17/22 07:14 Neut # (Auto) 2.95 K/uL (1.40-6.50) 10/17/22 07:14 Lymph # (Auto) 12.64 K/uL (1.2-3.4) H 10/17/22 07:14 [place] # (Auto) 1.66 K/uL (0.11-0.59) H 10/17/22 07:14 Eos # (Auto) 0.17 K/uL (0-0.50) 10/17/22 07:14 Baso # (Auto) 0.11 K/uL (0-0.2) 10/17/22 07:14 Immature Gran # (Auto) 0.03 K/uL (0.01-0.20) 10/17/22 07:14 Blood Smear Review 10/17/22 07:14 Polychromasia 1+ 10/17/22 07:14 Tear Drop Cells 1+ 10/16/22 22:25 Sodium 137 mmol/L (136-145) 10/17/22 07:14 Potassium 4.2 mmol/L (3.5-5.1) 10/17/22 07:14 Chloride 104 mmol/L (98-107) 10/17/22 07:14 Carbon Dioxide 27 mmol/L (21-32) 10/17/22 07:14 Anion Gap 6 (3-11) 10/17/22 07:14 BUN 19 mg/dl (6-23) 10/17/22 07:14 Creatinine 0.93 mg/dl (0.6-1.4) 10/17/22 07:14 Est Cr Clr Drug Dosing 100.4 ml/min 10/17/22 07:14 Est GFR ( Amer) 100.2 ml/min 10/17/22 07:14 Est GFR (Non-Af Amer) 86.5 ml/min 10/17/22 07:14 BUN/Creatinine Ratio 20.4 (10-20) H 10/17/22 07:14 Glucose 103 mg/dl (70-99(Fasting)) H 10/17/22 07:14 POC Glucose 118 mg/dl (70-99) H 10/17/22 11:52 Estimat Average Glucose 154 mg/dl 10/17/22 07:14 Hemoglobin A1c 7.0 % (4.5-5.6) H 10/17/22 07:14 Calcium 8.8 mg/dl (8.6-10.3) 10/17/22 07:14 Magnesium 2.1 mg/dl (1.7-2.4) 10/17/22 07:14 Total Bilirubin 0.3 mg/dl (0.2-1.0) 10/16/22 22:25 AST 21 U/L (13-39) 10/16/22 22:25 ALT 13 U/L (7-52) 10/16/22 22:25 Alkaline Phosphatase 94 U/L (34-104) 10/16/22 22:25 Troponin I High Sens 10.6 pg/ml (0-20) 10/16/22 22:25 Total Protein 8.1 gm/dl (6.0-8.3) 10/16/22 22:25 Albumin 4.1 gm/dl (3.4-5.0) 10/16/22 22:25 Globulin 4.0 gm/dl (2.5-4.0) 10/16/22 22:25 Albumin/Globulin Ratio 1.0 (0.9-2) 10/16/22 22:25 Lipase 20 U/L (11-82) 10/16/22 22:25 Urine Color Dark Yellow 10/16/22 23:10 Urine Appearance Clear (Clear) 10/16/22 23:10 Urine pH 5.0 (4.5-7.5) 10/16/22 23:10 Ur Specific [place] 1.029 (1.000-1.030) 10/16/22 23:10 Urine Protein Negative (Negative) 10/16/22 23:10 Urine Glucose (UA) 3+ (Negative) H 10/16/22 23:10 Urine Ketones Negative (Negative) 10/16/22 23:10 Urine Blood Negative (Negative) 10/16/22 23:10 Urine Nitrite Negative (Negative) 10/16/22 23:10 Urine Bilirubin Negative (Negative) 10/16/22 23:10 Urine Urobilinogen Negative (Negative) 10/16/22 23:10 Ur Leukocyte Esterase Negative (Negative) 10/16/22 23:10 SARS-CoV-2, RNA, NAAT NEGATIVE (NEGATIVE) 10/17/22 03:15 Impressions Abdomen/Pelvis CT 10/16/22 23:05 Exam(s): CT ABDOMEN + PELVIS With Contrast IV Amt: 90 ml optiray 320 EXAM: CT Abdomen and Pelvis With Intravenous Contrast CLINICAL HISTORY: Reason for exam: chest, abdominal pain, had EGD today. TECHNIQUE: Axial computed tomography images of the abdomen and pelvis with intravenous contrast. CTDI is 27.25 mGy and DLP is 1533.79 mGy-cm. Automated exposure control was utilized for the study. A dose lowering technique was utilized adhering to the principles of ALARA. CONTRAST: Patient received 90 ml optiray 320 of IV contrast COMPARISON: No relevant prior studies available. FINDINGS: Lung bases: Unremarkable. No mass. No consolidation. ABDOMEN: Liver: Unremarkable. No mass. Gallbladder and bile ducts: Unremarkable. No calcified stones. No ductal dilation. Pancreas: Unremarkable. No mass. No ductal dilation. Spleen: Splenomegaly. Adrenals: Unremarkable. No mass. Kidneys and ureters: Unremarkable. No solid mass. No hydronephrosis. Stomach and bowel: Diverticulosis without evidence of diverticulitis. No obstruction. PELVIS: Appendix: Postoperative changes prior appendectomy. Bladder: Unremarkable. No mass. Reproductive: 9.7 x 10.4 cm left ovarian cyst. ABDOMEN and PELVIS: Intraperitoneal space: Unremarkable. No free air. No significant fluid collection. Bones/joints: No acute fracture. No dislocation. Soft tissues: Unremarkable. Vasculature: Unremarkable. No abdominal aortic aneurysm. Lymph nodes: Unremarkable. No enlarged lymph nodes. IMPRESSION: 1. Splenomegaly 2. Other minor chronic findings as described above 3. CT of the abdomen and pelvis is negative for acute intra-abdominal pathology Electronically signed by: Massimo Monreal MD 10/17/22 01:[address] 10/16/22 23:05 CR Exam(s): CT CHEST With Contrast IV Amt: 90 ml optiray 320 EXAM: CT Chest With Intravenous Contrast CLINICAL HISTORY: Reason for exam: chest/epigastric pain, EGD earlier today. TECHNIQUE: Axial computed tomography images of the chest with intravenous contrast. CTDI is 28.14 mGy and DLP is 993.24 mGy-cm. Automated exposure control was utilized for the study. A dose lowering technique was utilized adhering to the principles of ALARA. CONTRAST: Patient received 90 ml optiray 320 of IV contrast COMPARISON: No relevant prior studies available. FINDINGS: Lungs: Unremarkable. No mass. No consolidation. Pleural space: Unremarkable. No pneumothorax. No significant effusion. Heart: Unremarkable. No cardiomegaly. No significant pericardial effusion. No significant coronary artery calcifications. Bones/joints: Unremarkable. No acute fracture. No dislocation. Soft tissues: Unremarkable. Vasculature: Unremarkable. No thoracic aortic aneurysm. Lymph nodes: Unremarkable. No enlarged lymph nodes. Intraperitoneal space: Circumferential wall thickening of the esophagus present. No large extraluminal gas present on this exam. There is a tiny locule of extraluminal gas adjacent to the esophagus measuring 0.4 cm just to the level of the irene.. There is a second tiny locule of air adjacent to the esophagus at the level of the thoracic inlet. IMPRESSION: 1. Findings consistent with a tiny microperforation. No large pneumomediastinum. 2. CT of the lungs with contrast otherwise unremarkable. Communications: Call Doctor Pneumomediastinum Electronically signed by: Massimo Monreal MD 10/17/22 01:22 AM Hospital Course (1) Perforation of esophagus: (2) Pneumomediastinum: Plan 62-year-old male with EGD yesterday morning for evaluation of anemia presented to ED with chest discomfort yesterday evening and was found to have microperforation of esophagus with pneumomediastinum. EGD was normal except for GE junction abnormalities and biopsies were taken from esophagus, stomach and duodenum. ED taled to on-call GI who recommended transfer to tertiary care where CT surgery was available. Patient was accepted at [facility] but they did not have beds, so hospitalist service was consulted for admission overnight until bed becomes available. Patient was started on IV Protonix drip, empiric Zosyn and IV Pepcid and kept NPO with significant improvement in his symptoms. His vitals have remained stable. Patient was seen by GI today who was concerned about the pneumomediastinum and recommended urgent transfer. I spoke to patient who is agreeable to transfer wherever a bed is available. I spoke to [facility]-they did not still have a bed for the patient. I spoke to [facility]- they had a bed for the patient. I spoke to Dr Evans from [facility] who accepted the patient for further management of his esophageal perforation. All paperwork was completed. Patient is comfortable and stable for discharge to [facility]. Total Time Total Time Spent Total Time Spent (In Minutes): 45 Discharge Plan Discharge Items Patient Disposition: Transfer Acute Care Hospital Reason For Visit: CHEST PAIN POST EGD Discharge Diagnosis: Esophageal microperforation with pneumomediastinum s/p EGD yesterday Condition on Discharge: Good Activity: Per Instructions section Non-emergency contact: Primary Care Provider Call non-emergency contact if: your symptoms worsen Follow-up/Referrals: [facility] [Primary Care Provider] - Diet: Nothing by Mouth Addtl Attending Provider Instructions: You are being transferred to [facility] for cardiothoracic surgery evaluation Continue zosyn, protonix drip Your inpatient medications here are as follows and recommended to continue at [place] Current Inpatient Medications Dextrose (Dextrose 50% 50 Ml Syringe) 25 - 50 ml IV UD PRN; Protocol PRN Reason: Hypoglycemia Protocol Stop: 11/16/22 05:57 Glucagon (Glucagon For Inj 1 Mg Vial) 1 mg SQ UD PRN; Protocol PRN Reason: Hypoglycemia Protocol Stop: 11/16/22 05:57 Glucose (Glucose 10 Tab/Tube) 4 - 8 tab PO UD PRN; Protocol PRN Reason: Hypoglycemia Treatment Stop: 11/16/22 05:57 Glucose (Glucose 40% Gel 15 Gm Tube) 15 - 30 gm PO UD PRN; Protocol PRN Reason: Hypoglycemia Protocol Stop: 11/16/22 05:57 Sodium Chloride (Nss 1000ml) 1,000 mls @ 100 mls/hr IV .Q10H MAYITO Stop: 11/16/22 05:57 Last Admin: 10/17/22 06:17 Dose: 100 mls/hr Famotidine 20 mg/ Syringe 5 mls @ 2.5 mls/min IV BID MAYITO Stop: 11/16/22 08:59 Last Admin: 10/17/22 08:35 Dose: 2.5 mls/min Pantoprazole Sodium 40 mg/ (Dextrose) 100 mls @ 20 mls/hr IV Q5H MAYITO Stop: 11/16/22 05:59 Last Admin: 10/17/22 06:20 Dose: 8 mg/hr, 20 mls/hr Piperacillin Sod/Tazobactam (Sod 4.5 gm/ Dextrose) 120 mls @ 30 mls/hr IV Q8H MAYITO; Protocol Stop: 10/27/22 07:59 Last Admin: 10/17/22 08:34 Dose: 30 mls/hr Insulin Aspart (Insulin Aspart Per Unit Charge) 0 units SC Q6 MAYIOT Stop: 11/16/22 05:59 Last Admin: 10/17/22 06:11 Dose: Not Given Miscellaneous (Carbohydrates For Hypoglycemia ) 15 - 30 gm PO UD PRN PRN Reason: Hypoglycemia Protocol Stop: 11/16/22 05:57 Morphine Sulfate (Morphine Sulfate 2 Mg/Ml Carp) 2 mg IV Q4H PRN PRN Reason: Pain Stop: 10/31/22 05:57 Ondansetron HCl (Ondansetron Inj 2 Mg/Ml 2 Ml Vial) 4 mg IV Q6H PRN PRN Reason: Nausea Stop: 11/16/22 05:57 Pending Studies at Discharge: No Stand-Alone Forms: My [facility] Skilled Items Patient informed of condition?: Yes DNR: No Discharge Level of Care: Other Communicable Disease: No Discharge Prognosis: Stable Lines: Peripheral IV Urinary Catheter: No Medications and DC Order Prescriptions: Continued famotidine 20 mg tablet 20 mg PO BID cyclobenzaprine 10 mg tablet 10 mg PO TID PRN (Reason: MUSCLE SPASMS) diclofenac sodium 1 % gel 2 gm TOP QID PRN (Reason: Pain) gabapentin 300 mg capsule 300 mg PO .COMPLEX Rx Instructions: -300 mg PO take 2 capsules in the morning, one capsule at noon and then takes 2 capsules in the evening.; allopurinol 300 mg Tablet 300 mg PO DAILY docusate sodium 100 mg Tablet 100 mg PO BID PRN (Reason: Constipation) simvastatin 20 mg tablet 20 mg PO PM sumatriptan succinate 50 mg tablet 50 mg PO DIRECTED MDD 2 DOSES/24 HOURS PRN (Reason: Migraine Headache) Rx Instructions: TAKE 1 TAB AT ONSET OF RYAN, MAY REPEAT ONE TIME IN 24 HOURS IF NEEDED. cyanocobalamin (vitamin B-12) [Vitamin B-12] 1,000 mcg Tablet 1,000 mcg PO DAILY aspirin 81 mg Tablet,Delayed Release (Dr/Ec) 81 mg PO DAILY ascorbic acid (vitamin C) [Vitamin C] 500 mg Tablet 250 mg PO DAILY metformin 1,000 mg tablet 1,000 mg PO BID polyethylene glycol 3350 [Miralax] 17 gram/dose Powder 17 g PO DAILY PRN (Reason: Constipation) fluocinonide 0.05 % Cream 1 applic TOPICAL BID PRN (Reason: DERMATITIS) acetaminophen 325 mg tablet 650 mg PO UD urea 40 % cream 1 applic TOPICAL UD nortriptyline 50 mg capsule 150 mg PO DAILY cholecalciferol (vitamin D3) [Vitamin D3] 25 mcg (1,000 unit) tablet 1,000 unit PO DAILY meclizine 25 mg tablet,chewable 25 mg PO Q8 PRN (Reason: Dizziness) Discharge Orders: Discharge Order (Routine); Ordered 10/17/22 Ordered By: Himanshu Villaseñor/Other Patient Handouts: Managing Type 2 Diabetes Admission Data Admit Date/Time: 10/17/22 04:33 Attending Provider: Himanshu Olson Admit Provider: Blade Ramirez Primary Care Provider: [facility] Other Providers: Jarad Argueta
--- NOTE | 2022-10-17 19:55 | Electrocardiogram Report ---
Test Reason : Blood Pressure : / mmHG Vent. Rate : 096 BPM Atrial Rate : 096 BPM P-R Int : 142 ms QRS Dur : 086 ms QT Int : 360 ms P-R-T Axes : 016 -22 042 degrees QTc Int : 454 ms Normal sinus rhythm Minimal voltage criteria for LVH, may be normal variant Anteroseptal infarct , age undetermined Abnormal ECG When compared with ECG of 18-JUN-2018 09:56, Vent. rate has increased BY 38 BPM Anteroseptal infarct is now Present QT has lengthened Confirmed by Phan Parks ([id number]) on 10/17/2022 7:55:41 PM Referred By: REFERRED SELF Confirmed By:Alirio Parks
[2022-10-18] MEDS: SODIUM CHLORIDE 0.9% 1000ML 1,000 ML IV SCH (00:34)
[2022-10-18] MEDS: PANTOprazole 40 MG in DEXTROSE 5% 100 ML IV SCH ×2 (00:34→06:01)
[2022-10-18] MEDS: INSULIN ASPART PER UNIT CHARGE SC SCH (05:55)
[2022-10-18] MEDS: PIPERACILLIN/TAZOBACTAM 4.5 GM in DEXTROSE 5% 100 ML IV SCH (06:07)
== END 2022-10-18 09:08 | disposition short-term general hospital (02) | DRG 919 ==
LOC: ED 21:23 → 2S 10-17 04:33